=== PATIENT | female | born 1945 | race Caucasian/White ===

== ENCOUNTER 2020-04-17 19:24 | Inpatient (IN) | payer MEDICARE, OTHER ==
[2020-04-17] MEDS ORDERED: Ketorolac 30 MG/ML SDV IM ONE (20:31)
--- NOTE | 2020-04-17 20:34 | EDM.PDOC ---
ED HPI GENERAL MEDICAL PROBLEM - General Chief Complaint: General Stated Complaint: [facility]IA [facility] Time Seen by Provider: 04/17/20 20:24 Source of Information: Reports: Patient, Family, RN Notes Reviewed History Limitations: Reports: No Limitations - History of Present Illness INITIAL COMMENTS - FREE TEXT/NARRATIVE: 74-year-old female presents to emergency department a complaint of left hip pain, and weakness, she states she fell about 2 weeks ago initially she did walk on it but now the pain is gotten so severe she can no longer bear weight and has been moving around the home in a wheelchair. Left Leg Pain Score (Numeric/FACES): 10 - Related Data Allergies Allergy/AdvReac Type Severity Reaction Status Date / Time lisinopril AdvReac Cough Verified 04/17/20 19:38 Home Meds: Home Meds Cholecalciferol (Vitamin D3) [Vitamin D] 2,000 unit PO DAILY 10/16/14 [History] Levothyroxine [Synthroid] 50 mcg PO ACBREAKFAST 10/16/14 [History] Metoprolol Succinate [Toprol XL] 50 mg PO BID 10/16/14 [History] metFORMIN [Glucophage] 1,000 mg PO BIDMEALS 10/16/14 [History] Albuterol Sulfate [Albuterol Sulfate HFA] 2 puff PO QID PRN 11/20/14 [History] Aspirin [[place] Aspirin] 81 mg PO DAILY 11/20/14 [History] HCTZ/Triamterene [Maxzide 25-37.5 MG] 1 tab PO DAILY 11/20/14 [History] Terbinafine [LamISIL AT 1% Crm] 1 film TOP BID PRN 11/20/14 [History] Benzonatate [Tessalon Perle] 100 mg PO TID PRN 04/17/20 [History] Insulin Glarg,Human.Rec.Analog [Lantus Solostar] 19 unit SUBCUT DAILY 04/17/20 [History] Loratadine 10 mg PO DAILY 04/17/20 [History] Montelukast [Singulair] 10 mg PO DAILY 04/17/20 [History] [place]-3 Acid Ethyl Esters [Lovaza] 1 gm PO DAILY 04/17/20 [History] Terbinafine [LamISIL AT] 36 gm TP BID PRN 04/17/20 [History] Tiotropium [Spiriva] 18 mcg INH DAILY 04/17/20 [History] allopurinoL [Zyloprim] 300 mg PO DAILY 04/17/20 [History] atorvaSTATin Calcium [Lipitor] 20 mg PO DAILY 04/17/20 [History] Past Medical History HEENT History: Reports: Impaired Vision Cardiovascular History: Reports: High Cholesterol, Hypertension Respiratory History: Reports: Asthma Gastrointestinal History: Reports: Other (See Below) Other Gastrointestinal History: Had 2 weeks of diarrhea 2 months ago. 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: Musculoskeletal History: Reports: Arthritis Neurological History: Reports: Concussion Psychiatric History: Reports: Depression Endocrine/Metabolic History: Reports: Diabetes, Type II, Obesity/BMI 30+ Other Dermatologic History: something on back of head - Infectious Disease History Infectious Disease History: Reports: Chicken Pox, Measles - Past Surgical History HEENT Surgical History: Reports: Cataract Surgery Musculoskeletal Surgical History: Reports: Knee Replacement, Other (See Below) Other Musculoskeletal Surgeries/Procedures:: knee injections- cortisone right shoulder gets PT Social & Family History - Tobacco Use Tobacco Use Status *Q: Former Tobacco User Years of Tobacco use: 40 Packs/Tins Daily: 1 Used Tobacco, but Quit: Yes Month/Year Tobacco Last Used: Second Hand Smoke Exposure: No - Caffeine Use Caffeine Use: Reports: Coffee, Tea - Recreational Drug Use Recreational Drug Use: No ED ROS GENERAL - Review of Systems Review Of Systems: See Below Respiratory: Reports: No Symptoms Cardiovascular: Reports: No Symptoms Musculoskeletal: Reports: Joint Pain (Left hip pain) Neurological: Reports: No Symptoms ED EXAM, GENERAL - Physical Exam Exam: See Below Free Text/Narrative:: Examination left hip and on appreciate any erythema there is no edema however she is specifically point tenderness over the greater trochanter, will not tolerate much of an exam Exam Limited By: No Limitations General Appearance: Alert, WD/WN, No Apparent Distress Respiratory/Chest: No Respiratory Distress Course - Vital Signs Last Recorded V/S: Last Vital Signs Temp 97.3 F 04/18/20 00:18 Pulse 69 04/18/20 00:18 Resp 18 04/18/20 00:18 BP 168/80 H 04/18/20 00:18 Pulse Ox 90 L 04/18/20 00:18 - Orders/Labs/Meds Orders: Active Orders 24 hr Category Date Time Status Peripheral IV Care [RC] . DIRECTED Care 04/17/20 23:37 Active Hip Min 2V or 3V w Pelvis Lt [CR] Stat Exams 04/17/20 20:31 Taken Iopamidol [Isovue-300 (61%)] Med 04/18/20 00:31 Active 100 ml IV . DIRECTED PRN Sodium Chloride 0.9% [Normal Saline] 1,000 ml Med 04/17/20 23:45 Active IV ASDIRECTED Sodium Chloride 0.9% [Normal Saline] 80 ml Med 04/18/20 00:45 Active IV ASDIRECTED Sodium Chloride 0.9% [Saline Flush] Med 04/17/20 23:37 Active 10 ml FLUSH ASDIRECTED PRN Peripheral IV Insertion Adult [OM.PC] Stat Oth 04/17/20 23:37 Ordered Medication Orders Sodium Chloride (Normal Saline) 1,000 mls @ 500 mls/hr IV ASDIRECTED ELIZABETH Last Admin: 04/18/20 00:17 Dose: 500 mls/hr Documented by: SUJEY Sodium Chloride (Normal Saline) 80 mls @ 3 mls/sec IV ASDIRECTED ELIZABETH Last Admin: 04/18/20 00:48 Dose: 3 mls/sec Documented by: Admin: 04/18/20 00:45 Dose: 3 mls/sec Documented by: LAURA Iopamidol (Isovue-300 (61%)) 100 ml IV . DIRECTED PRN PRN Reason: RADIOLOGY EXAM Stop: 04/19/20 00:32 Last Admin: 04/18/20 00:45 Dose: 100 ml Documented by: LAURA Sodium Chloride (Saline Flush) 10 ml FLUSH ASDIRECTED PRN PRN Reason: Keep Vein Open Labs: Laboratory Tests 04/17/20 04/17/20 04/17/20 Range/Units 23:45 23:45 23:45 WBC 10.1 (4.5-11.0) K/uL RBC 3.40 (3.30-5.50) M/uL Hgb 11.0 L (12.0-15.0) g/dL Hct 36.2 (36.0-48.0) % MCV 107 H (80-98) fL MCH 32 H (27-31) pg MCHC 30 L (32-36) % Plt Count 234 (150-400) K/uL Neut % (Auto) 61 (36-66) % Lymph % (Auto) 24 (24-44) % [place] % (Auto) 11 H (2-6) % Eos % (Auto) 4 (2-4) % Baso % (Auto) 0 (0-1) % Sodium 138 L (140-148) mmol/L Potassium 4.2 (3.6-5.2) mmol/L Chloride 100 (100-108) mmol/L Carbon Dioxide 30 (21-32) mmol/L Anion Gap 12.2 (5.0-14.0) mmol/L BUN 17 (7-18) mg/dL Creatinine 1.2 H (0.6-1.0) mg/dL Est Cr Clr Drug Dosing 33.52 mL/min Estimated GFR (MDRD) 44 L (>60) Glucose 99 (74-106) mg/dL Lactic Acid 4.5 H (0.4-2.0) mmol/L Calcium 10.9 H (8.5-10.1) mg/dL Total Bilirubin 0.3 (0.2-1.0) mg/dL AST 35 (15-37) U/L ALT 43 (12-78) U/L Alkaline Phosphatase 83 (46-116) U/L C-Reactive Protein 0.13 (0.0-0.3) mg/dL Total Protein 8.3 H (6.4-8.2) g/dL Albumin 3.7 (3.4-5.0) g/dL Globulin 4.6 H (2.3-3.5) g/dL Albumin/Globulin Ratio 0.8 L (1.2-2.2) Meds: Medications Generic Name Dose Route Start Last Admin Trade Name Freq PRN Reason Stop Dose Admin Sodium Chloride 1,000 mls @ 500 mls/hr 04/17/20 23:45 04/18/20 00:17 Normal Saline IV 500 mls/hr ASDIRECTED ELIZABETH Administration Sodium Chloride 80 mls @ 3 mls/sec 04/18/20 00:45 04/18/20 00:48 Normal Saline IV 3 mls/sec ASDIRECTED ELIZABETH Administration Iopamidol 100 ml 04/18/20 00:31 04/18/20 00:45 Isovue-300 (61%) IV 04/19/20 00:32 100 ml . DIRECTED PRN Administration RADIOLOGY EXAM Sodium Chloride 10 ml 04/17/20 23:37 Saline Flush FLUSH ASDIRECTED PRN Keep Vein Open Discontinued Medications Generic Name Dose Route Start Last Admin Trade Name Gregoryq PRN Reason Stop Dose Admin Acetaminophen 650 mg 04/17/20 23:39 04/18/20 00:06 Tylenol PO 04/17/20 23:40 650 mg NOW ONE Administration Ketorolac Tromethamine 30 mg 04/17/20 20:31 04/17/20 21:18 Toradol IM 04/17/20 20:32 30 mg ONETIME ONE Administration Sodium Chloride 10 ml 04/18/20 00:31 Saline Flush FLUSH 04/18/20 00:32 ONETIME ONE Departure - Departure Time of Disposition: 01:37 Disposition: Admitted As Inpatient 68 Condition: Poor Clinical Impression: Lytic bone lesions on xray - Discharge Information Referrals: PCP,None [Primary Care Provider] - Forms: ED Department Discharge Sepsis Event Note (ED) - Evaluation Sepsis Screening Result: No Definite Risk - Focused Exam Vital Signs: Vital Signs Temp Pulse Resp BP Pulse Ox 04/18/20 00:18 97.3 F 69 18 168/80 H 90 L 04/17/20 20:12 97.0 F 74 14 126/55 L 90 L - My Orders Last 24 Hours: My Active Orders 04/17/20 20:31 Hip Min 2V or 3V w Pelvis Lt [CR] Stat 04/17/20 23:37 Peripheral IV Care [RC] . DIRECTED Sodium Chloride 0.9% [Saline Flush] 10 ml FLUSH ASDIRECTED PRN Peripheral IV Insertion Adult [OM.PC] Stat 04/17/20 23:45 Sodium Chloride 0.9% [Normal Saline] 1,000 ml IV ASDIRECTED 04/18/20 00:31 Iopamidol [Isovue-300 (61%)] 100 ml IV . DIRECTED PRN 04/18/20 00:45 Sodium Chloride 0.9% [Normal Saline] 80 ml IV ASDIRECTED - Assessment/Plan Last 24 Hours: My Active Orders 04/17/20 20:31 Hip Min 2V or 3V w Pelvis Lt [CR] Stat 04/17/20 23:37 Peripheral IV Care [RC] . DIRECTED Sodium Chloride 0.9% [Saline Flush] 10 ml FLUSH ASDIRECTED PRN Peripheral IV Insertion Adult [OM.PC] Stat 04/17/20 23:45 Sodium Chloride 0.9% [Normal Saline] 1,000 ml IV ASDIRECTED 04/18/20 00:31 Iopamidol [Isovue-300 (61%)] 100 ml IV . DIRECTED PRN 04/18/20 00:45 Sodium Chloride 0.9% [Normal Saline] 80 ml IV ASDIRECTED Plan: Assessment Acuity = acute Site and laterality = multiple lytic lesions femur pelvis spine ribs Etiology = multiple myeloma versus metastatic disease Manifestations = weakness, intractable bone pain Location of injury = Home Lab values = hemoglobin low 11.0 consistent with microchromic anemia creatinine elevated 1.2 consistent with chronic renal failure stage G3 B lactic acid elevated 4.5 consistent with lactic acidosis calcium elevated 10.9 CT scan describes multiple lytic lesions throughout the bones bases Plan Call discussed case Dr. Morris at 136 she currently agreed to come and evaluate the patient hospital for admission This note was dictated using [employer] voice recognition software please call with any questions on syntax or grammar.
--- NOTE | 2020-04-17 23:16 | CRLCT ---
INDICATION: Fall with pain and inability to bear weight. TECHNIQUE: Multi detector imaging mid pelvis to proximal calf. Axial, coronal and sagittal reformats. FINDINGS: No soft tissue hematoma or mass. Multiple intramedullary lesions with well-defined punched-out appearing lytic defects of cortex. Largest roughly 3 cm diameter poorly defined lucent lytic lesion in the undersurface of the femoral head and neck. Inferior cortex shows prominent permeative bone loss. Although fracture is strongly suspected, no definitive displaced fracture is seen although it is at significant risk nonetheless given that it involves greater than 50 percent of the medullary space. Next largest punched out appearing lytic intramedullary lesion extending through the cortex of the posterior femoral diaphysis roughly 11 cm above the knee. Multiple small other intramedullary lesions are present without bony changes. Small spindle shaped intramuscular lipoma in the lateral gluteus cherrie. No pathologic adenopathy. Mild osteoarthritis of the hip. Grade 3 osteoarthritis of the knee most pronounced medial compartment. Possible lytic lesion medial plateau. IMPRESSION: Multiple bone lesions are myeloma or metastasis. Probable pathologic fracture associated with largest lesion in the undersurface of the femoral head neck. If there is not a current nondisplaced fracture the lesion is at significant risk for development of pathologic fracture. Orthopedic referral recommended. Please note that all CT scans at this facility use dose modulation, iterative reconstruction, and/or weight-based dosing when appropriate to reduce radiation dose to as low as reasonably achievable. Dictated by Koby Arvizu MD @ Apr 20 2020 8:26AM Signed by Dr. Koby Arvizu @ Apr 20 2020 8:26AM
[2020-04-17] MEDS ORDERED: Sodium Chloride 0.9% 10 ML Syringe FLUSH PRN (23:37)
[2020-04-17] MEDS ORDERED: Acetaminophen 325 MG Tab PO ONE (23:39)
[2020-04-17] MEDS ORDERED: Sodium Chloride 0.9% 1,000 ML IV SCH (23:45)
[2020-04-18] MEDS ORDERED: Iopamidol 612 MG/ML 100 ML Bottle IV PRN (00:31)
[2020-04-18] MEDS ORDERED: Sodium Chloride 0.9% 10 ML Syringe FLUSH ONE (00:31)
[2020-04-18] MEDS: Sodium Chloride 0.9% 80 ML IV SCH ×2 (00:45→00:48)
--- NOTE | 2020-04-18 01:23 | CRLCT ---
INDICATION: Multiple lytic lesion pelvis and femur, leg pain from fall TECHNIQUE: CT chest, abdomen, and pelvis with i.v. contrast during the venous phase. Coronal and sagittal reformats were obtained. CONTRAST: 100 mL Isovue 300 COMPARISON: CT leg 04/17/2020 FINDINGS: CHEST: Cardiovascular: The heart has an unremarkable appearance and size. The pulmonary arteries are unremarkable in appearance. No sign of aneurysm or dissection in the thoracic aorta. Moderate atherosclerotic calcifications are noted in the coronary arteries. Mediastinum: No mass or adenopathy seen. Lung: Severe centrilobular and panlobular emphysema is present bilaterally. Pleura and pericardium: No sign of pleural effusion seen. No significant pericardial effusion is present. Chest wall and axilla: No mass or adenopathy seen. Bone: I there s a lytic lesion in the posterior aspect of T4 and large lytic lesion in the anterior aspect of T12 with mild pathologic compression deformity. There are lytic lesions present within the manubrium with expansile soft tissue masses in the left anterior 1st and 4th ribs measuring up to 6 x 2.7 cm. ABDOMEN/PELVIS: Liver: Unremarkable. Spleen: Unremarkable. Pancreas: Unremarkable. Gallbladder: Unremarkable. The common bile duct is enlarged measuring 11 mm with abrupt caliber change near the ampulla. Kidney: There is a 6 mm nonobstructing intrarenal stone present in the lower pole of the right kidney. Adrenal: Unremarkable. Bowel: Moderate wall thickening of the gastric antrum is present. Diffuse colonic diverticulosis is seen. The appendix is normal in appearance and size. Vascular: Moderate diffuse atherosclerotic calcifications of the abdominal aorta and its tributaries are present. Lymph: Unremarkable. Peritoneum: Unremarkable. No pneumoperitoneum is seen. No significant ascites is noted. Pelvis: Moderate bladder distention is noted. Soft tissue: Unremarkable. Bone: Several sacral lytic lesions are noted. Lytic lesions within the proximal left femur and inferior pubic ramus are present. IMPRESSIONS: 1. Lytic lesions are present within the spine, pelvis with expansile masses along the left anterior 1st and 4th ribs. 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 2. The common bile duct is enlarged measuring 11 mm with abrupt caliber change near the ampulla. Assessment with MRCP is recommended. 3. Moderate wall thickening of the gastric antrum is present. This may be due to gastritis or peptic ulcer disease and confirmation with barium GI series or endoscopy is recommended. Dictated by Abel Youssef MD @ 04/18/2020 1:22:28 AM Please note that all CT scans at this facility use dose modulation, iterative reconstruction, and/or weight-based dosing when appropriate to reduce radiation dose to as low as reasonably achievable. Dictated by: Abel Youssef MD @ 04/18/2020 01:22:34 (Electronically Signed)
[2020-04-18] MEDS ORDERED: Ondansetron 4 MG Tab.DIS PO PRN (01:38)
[2020-04-18] MEDS ORDERED: 50% Dextrose in Water 50 ML Syringe IVPUSH PRN (01:42)
[2020-04-18] MEDS ORDERED: Glucagon,Human Recombinant 1 MG Vial IM PRN (01:42)
[2020-04-18] MEDS ORDERED: Benzonatate 100 MG Cap PO PRN (01:42)
[2020-04-18] MEDS ORDERED: TERBINAFINE TOP PRN ×2 (01:42)
[2020-04-18] MEDS ORDERED: Albuterol 8 GM Inhaler INH PRN (01:42)
[2020-04-18] MEDS ORDERED: Sodium Chloride 0.9% 1,000 ML IV SCH (01:45)
[2020-04-18] MEDS ORDERED: Levothyroxine 50 MCG Tab PO SCH (07:30)
[2020-04-18] MEDS ORDERED: metFORMIN 500 MG Tab PO SCH (08:00)
[2020-04-18] MEDS: oxyCODONE 5 MG Tab PO PRN ×3 (08:25→20:04)
--- NOTE | 2020-04-18 08:46 | PCM.HP.2 ---
H&P History of Present Illness - General Date of Service: 04/18/20 Admit Problem/Dx: Admission Diagnosis/Problem Admission Diagnosis/Problem Lytic lesion of bone on x-ray Source of Information: Patient History Limitations: Reports: No Limitations - History of Present Illness Initial Comments - Free Text/Narative: Patient is a 74yo female with PMH of HTN, DMII, COPD, and hypothyroidism who presented O/N for L hip pain. The patient says that she fell a few weeks ago and has been having some pain, but in the last two weeks the pain has increased to the point of her not being able to bear weight on her L leg. She worried she had a fracture and came to the ED. She says the pain in her leg has been ongoing since at least the summer. She says she had XRs done in the summer and they were negative and she started PT to help, but it hasn't improved her pain. She says she has been having routine lab work and it has never been concerning and she does see her PCP regularly. PCP is Kasey Alamo at [facility]. Patient denies any fever, night sweats, chills, malaise. She does note a bout of loose stools that happened for more than two weeks this summer. Duration of Symptoms: Reports: Week(s): Location: Reports: Lower Extremity, Left Quality: Reports: Ache, Sharp Improves with: Reports: None Worsens with: Reports: Movement Associated Symptoms: Reports: No Other Symptoms Left Leg Pain Score (Numeric/FACES): 7 - Related Data Allergies/Adverse Reactions: Allergies Allergy/AdvReac Type Severity Reaction Status Date / Time lisinopril AdvReac Cough Verified 04/17/20 19:38 Home Medications: Home Meds Cholecalciferol (Vitamin D3) [Vitamin D] 2,000 unit PO DAILY 10/16/14 [History] Levothyroxine [Synthroid] 50 mcg PO ACBREAKFAST 10/16/14 [History] metFORMIN [Glucophage] 1,000 mg PO BIDMEALS 10/16/14 [History] Albuterol Sulfate [Albuterol Sulfate HFA] 2 puff PO QID PRN 11/20/14 [History] Aspirin [[place] Aspirin] 81 mg PO DAILY 11/20/14 [History] HCTZ/Triamterene [Maxzide 25-37.5 MG] 1 tab PO DAILY 11/20/14 [History] Terbinafine [LamISIL AT 1% Crm] 1 film TOP BID PRN 11/20/14 [History] Benzonatate [Tessalon Perle] 100 mg PO TID PRN 04/17/20 [History] Insulin Glarg,Human.Rec.Analog [Lantus Solostar] 19 unit SUBCUT BEDTIME 04/17/20 [History] Loratadine 10 mg PO DAILY 04/17/20 [History] Montelukast [Singulair] 10 mg PO BEDTIME 04/17/20 [History] [place]-3 Acid Ethyl Esters [Lovaza] 1 gm PO DAILY 04/17/20 [History] Terbinafine [LamISIL AT] 36 gm TP BID PRN 04/17/20 [History] Tiotropium [Spiriva] 18 mcg INH DAILY 04/17/20 [History] allopurinoL [Zyloprim] 300 mg PO DAILY 04/17/20 [History] atorvaSTATin Calcium [Lipitor] 20 mg PO QPM 04/17/20 [History] Metoprolol Tartrate 50 mg PO BID 04/18/20 [History] Past Medical History HEENT History: Reports: Impaired Vision Cardiovascular History: Reports: High Cholesterol, Hypertension Respiratory History: Reports: Asthma Gastrointestinal History: Reports: Other (See Below) Other Gastrointestinal History: Had 2 weeks of diarrhea 2 months ago. 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: Musculoskeletal History: Reports: Arthritis Neurological History: Reports: Concussion Psychiatric History: Reports: Depression Endocrine/Metabolic History: Reports: Diabetes, Type II, Obesity/BMI 30+ Other Dermatologic History: something on back of head - Infectious Disease History Infectious Disease History: Reports: Chicken Pox, Measles - Past Surgical History HEENT Surgical History: Reports: Cataract Surgery Musculoskeletal Surgical History: Reports: Knee Replacement, Other (See Below) Other Musculoskeletal Surgeries/Procedures:: knee injections- cortisone right shoulder gets PT Social & Family History - Tobacco Use Tobacco Use Status *Q: Former Tobacco User Years of Tobacco use: 40 Packs/Tins Daily: 1 Used Tobacco, but Quit: Yes Month/Year Tobacco Last Used: 2002 Second Hand Smoke Exposure: No - Caffeine Use Caffeine Use: Reports: None - Recreational Drug Use Recreational Drug Use: No H&P Review of Systems - Review of Systems: Review Of Systems: See Below General: Denies: Fever, Chills, Malaise, Night Sweats HEENT: Reports: No Symptoms Pulmonary: Reports: No Symptoms Cardiovascular: Reports: No Symptoms Gastrointestinal: Reports: No Symptoms Genitourinary: Reports: No Symptoms Musculoskeletal: Reports: Leg Pain, Joint Pain Skin: Reports: No Symptoms Psychiatric: Reports: No Symptoms Neurological: Reports: No Symptoms Hematologic/Lymphatic: Reports: No Symptoms Immunologic: Reports: No Symptoms Exam - Exam Exam: See Below - Vital Signs Vital Signs: Last Vital Signs Temp 35.9 C L 04/18/20 07:46 Pulse 72 04/18/20 07:46 Resp 14 04/18/20 07:46 BP 118/66 04/18/20 07:46 Pulse Ox 91 L 04/18/20 07:46 Weight: 79.515 kg - Exam General: Alert, Oriented, 4 HEENT: PERRLA, Hearing Intact, Mucosa Moist & [place], Nares Patent, Normal Nasal Septum, Posterior Pharynx Clear, Conjunctiva Clear, EOMI, EACs Clear, TMs Clear Neck: Supple, Trachea Midline, 2 Lungs: Clear to Auscultation, Normal Respiratory Effort Cardiovascular: Regular Rate, Regular Rhythm GI/Abdominal Exam: Normal Bowel Sounds, Soft, Non-Tender, No Organomegaly, No Distention, No Abnormal Bruit, No Mass, Pelvis Stable (Female) Exam: Deferred Rectal (Female) Exam: Deferred Back Exam: Normal Inspection Extremities: Normal Inspection, Leg Pain (TTP of left leg) Skin: Warm, Dry, Intact Neurological: Cranial Nerves Intact, Reflexes Equal Bilateral Neuro Extensive - Mental Status: Alert, Oriented x3, Normal Mood/Affect, Normal Cognition Neuro Extensive - Motor, Sensory, Reflexes: CN II-XII Intact, Normal Gait, Normal Reflexes Psychiatric: Alert, Normal Affect, Normal Mood - Patient Data Lab Results Last 24 hrs: Laboratory Results - last 24 hr 04/17/20 04/17/20 04/17/20 Range/Units 23:45 23:45 23:45 WBC 10.1 (4.5-11.0) K/uL RBC 3.40 (3.30-5.50) M/uL Hgb 11.0 L (12.0-15.0) g/dL Hct 36.2 (36.0-48.0) % MCV 107 H (80-98) fL MCH 32 H (27-31) pg MCHC 30 L (32-36) % Plt Count 234 (150-400) K/uL Neut % (Auto) 61 (36-66) % Lymph % (Auto) 24 (24-44) % Mineral % (Auto) 11 H (2-6) % Eos % (Auto) 4 (2-4) % Baso % (Auto) 0 (0-1) % Sodium 138 L (140-148) mmol/L Potassium 4.2 (3.6-5.2) mmol/L Chloride 100 (100-108) mmol/L Carbon Dioxide 30 (21-32) mmol/L Anion Gap 12.2 (5.0-14.0) mmol/L BUN 17 (7-18) mg/dL Creatinine 1.2 H (0.6-1.0) mg/dL Est Cr Clr Drug Dosing 33.52 mL/min Estimated GFR (MDRD) 44 L (>60) Glucose 99 (74-106) mg/dL Lactic Acid 4.5 H (0.4-2.0) mmol/L Calcium 10.9 H (8.5-10.1) mg/dL Total Bilirubin 0.3 (0.2-1.0) mg/dL AST 35 (15-37) U/L ALT 43 (12-78) U/L Alkaline Phosphatase 83 (46-116) U/L C-Reactive Protein 0.13 (0.0-0.3) mg/dL Total Protein 8.3 H (6.4-8.2) g/dL Albumin 3.7 (3.4-5.0) g/dL Globulin 4.6 H (2.3-3.5) g/dL Albumin/Globulin Ratio 0.8 L (1.2-2.2) Result Diagrams: 04/17/20 23:45 04/17/20 23:45 Sepsis Event Note - Evaluation Sepsis Screening Result: No Definite Risk - Focused Exam Vital Signs: Vital Signs Temp Pulse Resp BP Pulse Ox 04/18/20 07:46 35.9 C L 72 14 118/66 91 L 04/18/20 02:26 35.7 C L 77 20 180/78 H 91 L 04/18/20 00:18 36.3 C 69 18 168/80 H 90 L - Problem List (1) Lytic bone lesions on xray SNOMED Code(s): 698470249 ICD Code: M89.9 - DISORDER OF BONE, UNSPECIFIED Status: Acute Priority: High Current Visit: Yes Onset Date: Unknown Problem Details: Patient has pain due to lytic lesions that are widespread of her bones. Will attempt to get pain under control with dexamethasone, NSAIDs, and opiate pain medication. 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 Diabetes mellitus complication status: with kidney complications Diabetes mellitus complication detail: with chronic kidney disease Chronic kidney disease stage: stage 3 (moderate) (3) HTN (hypertension) SNOMED Code(s): 71683718 ICD Code: I10 - ESSENTIAL (PRIMARY) HYPERTENSION Status: Acute Current Visit: Yes Problem Details: Will have patient continue home medications Qualifiers: Hypertension type: essential hypertension Qualified Code(s): I10 - Essential (primary) hypertension (4) Hypothyroidism SNOMED Code(s): 32032080 ICD Code: E03.9 - HYPOTHYROIDISM, UNSPECIFIED Status: Acute Current Visit: Yes Problem Details: Patient will continue synthyroid (5) COPD (chronic obstructive pulmonary disease) SNOMED Code(s): 92232078 ICD Code: J44.9 - CHRONIC OBSTRUCTIVE PULMONARY DISEASE, UNSPECIFIED Status: Acute Current Visit: Yes Problem Details: will have patient continue home medications Qualifiers: COPD type: chronic bronchitis Problem List Initiated/Reviewed/Updated: Yes Orders Last 24hrs: Active Orders 24 hr Category Date Time Status Patient Status [ADT] Routine ADT 04/18/20 01:38 Active Intake and Output [RC] QSHIFT Care 04/18/20 01:40 Active Oxygen Therapy [RC] PRN Care 04/18/20 01:38 Active POC Glucose [Blood Glucose Check, Bedside] [RC] Care 04/18/20 01:44 Active QIDACANDBED Peripheral IV Care [RC] . DIRECTED Care 04/17/20 23:37 Active RT Post Treatment Assessment [RC] Click to Edit Care 04/18/20 01:43 Active Up With Assistance [RC] ASDIRECTED Care 04/18/20 01:38 Active VTE/DVT Education [RC] Per Unit Routine Care 04/18/20 01:38 Active Vital Signs [RC] Q4H Care 04/18/20 01:38 Active Consistent Carbohydrate Diet [DIET] Diet 04/18/20 Breakfast Active Hip Min 2V or 3V w Pelvis Lt [CR] Stat Exams 04/17/20 20:31 Taken Acetaminophen [TylenoL] Med 04/18/20 01:38 Active 650 mg PO Q4H PRN Albuterol [Ventolin HFA] Med 04/18/20 01:42 Active 0 gm INH QID PRN Aspirin Med 04/18/20 09:00 Active 81 mg PO DAILY Benzonatate [Tessalon Perles] Med 04/18/20 01:42 Active 100 mg PO TID PRN Cholecalciferol (Vitamin D3) [Vitamin D3] Med 04/18/20 09:00 Active 50 mcg PO DAILY Dextrose 50% in Water Med 04/18/20 01:42 Active 50 ml IVPUSH ASDIRECTED PRN Docusate Sodium [Colace] Med 04/18/20 01:38 Active 100 mg PO BID PRN Enoxaparin [Lovenox] Med 04/18/20 09:00 Active 40 mg SUBCUT DAILY Fish Oil/[place]-3 Fatty Acids [Fish Oil] Med 04/18/20 09:00 Active 1 gm PO DAILY Glucagon,Human Recombinant [GlucaGen] Med 04/18/20 01:42 Active 1 mg IM ASDIRECTED PRN HCTZ/Triamterene [Maxzide 25-37.5 MG] Med 04/18/20 09:00 Active 1 each PO DAILY Insulin Glarg,Human.Rec.Analog [LantUS Solostar] Med 04/18/20 21:00 Active 19 units SUBCUT BEDTIME Iopamidol [Isovue-300 (61%)] Med 04/18/20 00:31 Active 100 ml IV . DIRECTED PRN Levothyroxine [Synthroid] Med 04/18/20 07:30 Active 50 mcg PO ACBREAKFAST Loratadine [Claritin] Med 04/18/20 09:00 Active 10 mg PO DAILY Metoprolol Tartrate [Lopressor] Med 04/18/20 09:00 Active 50 mg PO BID Montelukast [Singulair] Med 04/18/20 21:00 Active 10 mg PO BEDTIME Ondansetron [Zofran ODT] Med 04/18/20 01:38 Active 4 mg PO Q6H PRN Sodium Chloride 0.9% [Normal Saline] 1,000 ml Med 04/18/20 01:45 Active IV ASDIRECTED Sodium Chloride 0.9% [Saline Flush] Med 04/17/20 23:37 Active 10 ml FLUSH ASDIRECTED PRN Terbinafine [LamISIL AT 1% Crm] Med 04/18/20 01:42 Pending 1 film TOP BID PRN Terbinafine [LamISIL AT 1% Crm] Med 04/18/20 01:42 Pending 36 gm TP BID PRN Tiotropium [place] [Spiriva Respimat] Med 04/18/20 07:30 Active 0 gm INH DAILYRT allopurinoL [Zyloprim] Med 04/18/20 09:00 Active 300 mg PO DAILY atorvaSTATin [Lipitor] Med 04/18/20 17:00 Active 20 mg PO QPM metFORMIN [Glucophage] Med 04/18/20 08:00 Active 1,000 mg PO BIDMEALS oxyCODONE Med 04/18/20 01:38 Active 5 mg PO Q4H PRN Peripheral IV Insertion Adult [OM.PC] Stat Oth 04/17/20 23:37 Ordered Resuscitation Status Routine Resus Stat 04/18/20 01:38 Ordered Medication Orders Acetaminophen (Tylenol) 650 mg PO Q4H PRN PRN Reason: Pain (Mild 1-3)/fever Albuterol (Ventolin Hfa) 0 gm INH QID PRN PRN Reason: Shortness of Breath Allopurinol (Zyloprim) 300 mg PO DAILY [facility] Aspirin (Aspirin) 81 mg PO DAILY [facility] Atorvastatin Calcium (Lipitor) 20 mg PO QPM [facility] Benzonatate (Tessalon Perles) 100 mg PO TID PRN PRN Reason: Cough Cholecalciferol (Vitamin D3) 50 mcg PO DAILY [facility] Dextrose/Water (Dextrose 50% In Water) 50 ml IVPUSH ASDIRECTED PRN PRN Reason: Hypoglycemia Docusate Sodium (Colace) 100 mg PO BID PRN PRN Reason: Constipation Enoxaparin Sodium (Lovenox) 40 mg SUBCUT DAILY [facility] Fish Oil (Fish Oil) 1 gm PO DAILY [facility] Glucagon (Glucagen) 1 mg IM ASDIRECTED PRN PRN Reason: Hypoglycemia Sodium Chloride (Normal Saline) 1,000 mls @ 125 mls/hr IV ASDIRECTED [facility] Last Admin: 04/18/20 02:41 Dose: 125 mls/hr Documented by: SEBASTIAN Insulin Glargine (Lantus Solostar) 19 units SUBCUT BEDTIME [facility] Iopamidol (Isovue-300 (61%)) 100 ml IV . DIRECTED PRN PRN Reason: RADIOLOGY EXAM Stop: 04/19/20 00:32 Last Admin: 04/18/20 00:45 Dose: 100 ml Documented by: LAURA Levothyroxine Sodium (Synthroid) 50 mcg PO ACBREAKFAST [facility] Loratadine (Claritin) 10 mg PO DAILY [facility] Metformin HCl (Glucophage) 1,000 mg PO BIDMEALS [facility] Metoprolol Tartrate (Lopressor) 50 mg PO BID [facility] Montelukast Sodium (Singulair) 10 mg PO BEDTIME [facility] Non-Formulary Medication (Terbinafine [Lamisil At 1% Crm]) 1 film TOP BID PRN PRN Reason: Wound Care Non-Formulary Medication (Terbinafine [Lamisil At 1% Crm]) 36 gm TP BID PRN PRN Reason: Rash Ondansetron HCl (Zofran Odt) 4 mg PO Q6H PRN PRN Reason: Nausea able to take PO Oxycodone HCl (Oxycodone) 5 mg PO Q4H PRN PRN Reason: Pain (moderate 4-6) Last Admin: 04/18/20 08:25 Dose: 5 mg Documented by: XIOMARA Sodium Chloride (Saline Flush) 10 ml FLUSH ASDIRECTED PRN PRN Reason: Keep Vein Open Tiotropium [place] (Spiriva Respimat) 0 gm INH DAILYRT [facility] Triamterene/HCTZ (Maxzide 25-37.5 Mg) 1 each PO DAILY [facility]
[2020-04-18] MEDS ORDERED: Montelukast 10 MG Tab PO SCH (09:00)
[2020-04-18] MEDS ORDERED: OMEGA ACID ETHYL ESTERS PO SCH (09:00)
[2020-04-18] MEDS ORDERED: Metoprolol Succinate 50 MG Tab.ER PO SCH (09:00)
[2020-04-18] MEDS ORDERED: Insulin Glargine,Human Rec. Analog 100 Units/ML 3 ML Pen SUBCUT SCH ×2 (09:00→21:00)
[2020-04-18] MEDS ORDERED: Tiotropium Bromide 4 GM Inhalation Spray INH SCH (09:00)
[2020-04-18] MEDS ORDERED: atorvaSTATin 20 MG Tab PO SCH (09:00)
[2020-04-18] MEDS ORDERED: Allopurinol 100 MG Tab PO SCH (09:00)
[2020-04-18] MEDS: Tiotropium Bromide 4 GM Inhalation Spray INH SCH (09:55)
[2020-04-18] MEDS: Aspirin 81 MG Tab.Chew PO SCH (09:56)
[2020-04-18] MEDS: FATTY ACIDS PO SCH (09:57)
[2020-04-18] MEDS: OMEGA PO SCH (09:57)
[2020-04-18] MEDS: LORATADINE 10 MG PO SCH (09:57)
[2020-04-18] MEDS: FISH OIL PO SCH (09:57)
[2020-04-18] MEDS: Metoprolol Tartrate 50 MG Tab (PTOM) PO SCH ×2 (09:58→20:05)
[2020-04-18] MEDS: Hydrochlorothiazide/Triamterene 25-37.5 Tab (PTOM) PO SCH (10:00)
[2020-04-18] MEDS: ALLOPURINOL 300MG TAB (PTOM) PO SCH (10:02)
[2020-04-18] MEDS: Dexamethasone 4 MG/ML SDV IVPUSH SCH ×3 (10:02→22:02)
[2020-04-18] MEDS: METFORMIN 1,000MG TAB (PTOM) PO SCH ×2 (10:03→17:11)
[2020-04-18] MEDS: LEVOTHYROXINE 75MCG TAB (PTOM) PO SCH ×2 (10:04→11:52)
[2020-04-18] MEDS: Cholecalciferol (Vitamin D3) 25 MCG Tab (PTOM) PO SCH (10:06)
[2020-04-18] MEDS: Enoxaparin 40 MG/0.4 ML Syringe SUBCUT SCH (10:07)
[2020-04-18] MEDS: Acetaminophen 325 MG Tab PO PRN ×2 (14:37→20:04)
[2020-04-18] MEDS ORDERED: atorvaSTATin 20 MG Tab (PTOM) PO SCH (17:00)
[2020-04-18] MEDS ORDERED: Dimethicone 20%/Zinc Oxide 25% 56 GM Spray Bottle TOP PRN (19:29)
[2020-04-18] MEDS ORDERED: INSULIN GLARGINE HUMAN REC ANALOG 100 UNIT/ML SUBCUT SCH (21:00)
[2020-04-18] MEDS ORDERED: Montelukast 10 MG Tab (PTOM) PO SCH (21:00)
[2020-04-19] MEDS: Dexamethasone 4 MG/ML SDV IVPUSH SCH (04:50)
[2020-04-19] MEDS: Acetaminophen 325 MG Tab PO PRN ×3 (05:03→21:55)
[2020-04-19] MEDS: oxyCODONE 5 MG Tab PO PRN ×2 (05:03→14:34)
[2020-04-19] MEDS: Tiotropium Bromide 4 GM Inhalation Spray INH SCH (07:05)
[2020-04-19] MEDS: LEVOTHYROXINE 75MCG TAB (PTOM) PO SCH (07:30)
[2020-04-19] MEDS: METFORMIN 1,000MG TAB (PTOM) PO SCH (09:31)
[2020-04-19] MEDS: Docusate Sodium 100 MG Cap PO PRN (09:55)
[2020-04-19] MEDS: OMEGA PO SCH (09:55)
[2020-04-19] MEDS: Enoxaparin 40 MG/0.4 ML Syringe SUBCUT SCH (09:55)
[2020-04-19] MEDS: FATTY ACIDS PO SCH (09:55)
[2020-04-19] MEDS: FISH OIL PO SCH (09:55)
[2020-04-19] MEDS: Metoprolol Tartrate 50 MG Tab (PTOM) PO SCH (09:56)
[2020-04-19] MEDS: ALLOPURINOL 300MG TAB (PTOM) PO SCH (09:57)
[2020-04-19] MEDS: LORATADINE 10 MG PO SCH (09:57)
[2020-04-19] MEDS: Hydrochlorothiazide/Triamterene 25-37.5 Tab (PTOM) PO SCH (09:58)
[2020-04-19] MEDS: Cholecalciferol (Vitamin D3) 25 MCG Tab (PTOM) PO SCH (09:59)
[2020-04-19] MEDS: Aspirin 81 MG Tab.Chew PO SCH (10:00)
[2020-04-19] MEDS: fentaNYL 12 MCG/HR Transdermal Patch TRDERM SCH (10:07)
--- NOTE | 2020-04-19 13:46 | PCM.PN ---
- General Info Date of Service: 04/19/20 Subjective Update: There were no acute events overnight. Pain is a little better today than yesterday but still moderate in nature. Pain is worse when she tries to sit up. She also has some twinges of pain from her lower back radiating through her thigh especially on the right. She was able to bear weight with the assist of 2 people. She has not had any fevers. She has not had significant confusion so far. She remains extremely weak and pain control remains suboptimal though it is a little better. - Review of Systems General: Reports: Weakness - Patient Data Vitals - Most Recent: Last Vital Signs Temp 35.3 C L 04/19/20 12:00 Pulse 80 04/19/20 12:00 Resp 16 04/19/20 12:00 BP 162/74 H 04/19/20 12:00 Pulse Ox 92 L 04/19/20 12:00 Weight - Most Recent: 79.515 kg I&O - Last 24 Hours: Intake & Output 04/18/20 04/19/20 04/19/20 22:59 06:59 14:59 Output Total 600 Balance -600 Med Orders - Current: Current Medications Acetaminophen (Tylenol) 650 mg PO Q4H PRN PRN Reason: Pain (Mild 1-3)/fever Last Admin: 04/19/20 05:03 Dose: 650 mg Documented by: Albuterol (Ventolin Hfa) 0 gm INH QID PRN PRN Reason: Shortness of Breath Allopurinol (Zyloprim) 300 mg PO DAILY [facility] Aspirin (Aspirin) 81 mg PO DAILY [facility] Last Admin: 04/19/20 10:00 Dose: 81 mg Documented by: Atorvastatin Calcium (Lipitor) 20 mg PO QPM [facility] Benzonatate (Tessalon Perles) 100 mg PO TID PRN PRN Reason: Cough Cholecalciferol (Vitamin D3) 50 mcg PO DAILY [facility] Dexamethasone (Dexamethasone) 4 mg PO DAILY [facility] Dextrose/Water (Dextrose 50% In Water) 50 ml IVPUSH ASDIRECTED PRN PRN Reason: Hypoglycemia Dimethicone/Zinc Oxide (Rash Relief-Zinc Oxide [place]) 0 gm TOP ASDIRECTED PRN PRN Reason: Rash Last Admin: 04/18/20 20:42 Dose: 1 applic Documented by: Docusate Sodium (Colace) 100 mg PO BID PRN PRN Reason: Constipation Last Admin: 04/19/20 09:55 Dose: 100 mg Documented by: Enoxaparin Sodium (Lovenox) 40 mg SUBCUT DAILY [facility] Last Admin: 04/19/20 09:55 Dose: 40 mg Documented by: Fentanyl (Duragesic) 12 mcg TRDERM Q72H [facility] Last Admin: 04/19/20 10:07 Dose: 12 mcg Documented by: Fish Oil (Fish Oil) 1 gm PO DAILY [facility] Glucagon (Glucagen) 1 mg IM ASDIRECTED PRN PRN Reason: Hypoglycemia Insulin Glargine (Lantus Solostar) 19 units SUBCUT BEDTIME [facility] Levothyroxine Sodium 25 mcg/ (Levothyroxine Sodium 50 mcg) 75 mcg PO ACBREAKFAST [facility] Loratadine (Claritin) 10 mg PO DAILY [facility] Metformin HCl (Glucophage) 1,000 mg PO BIDMEALS [facility] Metoprolol Tartrate (Lopressor) 50 mg PO BID [facility] Montelukast Sodium (Singulair) 10 mg PO BEDTIME [facility] Terbinafine [Lamisil (At 1% Crm (Ptom)) 0 gm TOP BID PRN PRN Reason: Rash Verify Fentanyl (Patch) 0 each TOP BID [facility] Ondansetron HCl (Zofran Odt) 4 mg PO Q6H PRN PRN Reason: Nausea able to take PO Oxycodone HCl (Oxycodone) 5 mg PO Q4H PRN PRN Reason: Pain (moderate 4-6) Last Admin: 04/19/20 05:03 Dose: 5 mg Documented by: Sodium Chloride (Saline Flush) 10 ml FLUSH ASDIRECTED PRN PRN Reason: Keep Vein Open Tiotropium [place] (Spiriva Respimat) 0 gm INH DAILYRT [facility] Triamterene/HCTZ (Maxzide 25-37.5 Mg) 1 each PO DAILY [facility] Discontinued Medications Acetaminophen (Tylenol) 650 mg PO NOW ONE Stop: 04/17/20 23:40 Last Admin: 04/18/20 00:06 Dose: 650 mg Documented by: Atorvastatin Calcium (Lipitor) 20 mg PO QPM [facility] Last Admin: 04/18/20 17:09 Dose: 20 mg Documented by: Cholecalciferol (Vitamin D3) 50 mcg PO DAILY [facility] Last Admin: 04/19/20 09:59 Dose: 50 mcg Documented by: Dexamethasone (Dexamethasone) 4 mg IVPUSH Q6H [facility] Last Admin: 04/19/20 04:50 Dose: 4 mg Documented by: Fish Oil (Fish Oil) 1 gm PO DAILY [facility] Last Admin: 04/19/20 09:55 Dose: 1 gm Documented by: Sodium Chloride (Normal Saline) 1,000 mls @ 500 mls/hr IV ASDIRECTED [facility] Last Admin: 04/18/20 00:17 Dose: 500 mls/hr Documented by: Sodium Chloride (Normal Saline) 80 mls @ 3 mls/sec IV ASDIRECTED [facility] Last Admin: 04/18/20 00:48 Dose: 3 mls/sec Documented by: Sodium Chloride (Normal Saline) 1,000 mls @ 125 mls/hr IV ASDIRECTED [facility] Last Admin: 04/18/20 02:41 Dose: 125 mls/hr Documented by: Insulin Glargine (Lantus Solostar) 19 units SUBCUT BEDTIME [facility] Last Admin: 04/18/20 20:36 Dose: 19 units Documented by: Iopamidol (Isovue-300 (61%)) 100 ml IV . DIRECTED PRN PRN Reason: RADIOLOGY EXAM Stop: 04/19/20 00:32 Last Admin: 04/18/20 00:45 Dose: 100 ml Documented by: Ketorolac Tromethamine (Toradol) 30 mg IM ONETIME ONE Stop: 04/17/20 20:32 Last Admin: 04/17/20 21:18 Dose: 30 mg Documented by: Levothyroxine Sodium (Synthroid) 50 mcg PO ACBREAKFAST [facility] Last Admin: 04/18/20 20:59 Dose: Not Given Documented by: Loratadine (Claritin) 10 mg PO DAILY [facility] Last Admin: 04/19/20 09:57 Dose: 10 mg Documented by: Metoprolol Tartrate (Lopressor) 50 mg PO BID [facility] Last Admin: 04/19/20 09:56 Dose: 50 mg Documented by: Montelukast Sodium (Singulair) 10 mg PO BEDTIME [facility] Last Admin: 04/18/20 20:05 Dose: 10 mg Documented by: Non-Formulary Medication (Terbinafine [Lamisil At 1% Crm]) 1 film TOP BID PRN PRN Reason: Wound Care Levothyroxine 75mcg (Tab (Ptom)) 0 each PO ACBREAKFAST [facility] Last Admin: 04/19/20 07:30 Dose: 1 each Documented by: Allopurinol 300mg (Tab (Ptom)) 0 each PO DAILY [facility] Last Admin: 04/19/20 09:57 Dose: 1 each Documented by: Metformin 1,000mg (Tab (Ptom)) 1 each PO BIDMEALS [facility] Last Admin: 04/19/20 09:31 Dose: 1 each Documented by: Sodium Chloride (Saline Flush) 10 ml FLUSH ONETIME ONE Stop: 04/18/20 00:32 Last Admin: 04/18/20 02:35 Dose: Not Given Documented by: Tiotropium [place] (Spiriva Respimat) 0 gm INH DAILYRT [facility] Last Admin: 04/19/20 07:05 Dose: Not Given Documented by: Triamterene/HCTZ (Maxzide 25-37.5 Mg) 1 each PO DAILY [facility] Last Admin: 04/19/20 09:58 Dose: 1 each Documented by: - Exam Quality Assessment: No: Supplemental Oxygen General: Alert, Oriented, Cooperative, No Acute Distress Lungs: Normal Respiratory Effort. No: Wheezing Cardiovascular: Regular Rate, Regular Rhythm GI/Abdominal Exam: Soft, No Distention Extremities: No Pedal Edema. No: Increased Warmth Psy/Mental Status: Alert, Normal Affect Sepsis Event Note - Evaluation Sepsis Screening Result: No Definite Risk - Focused Exam Vital Signs: Vital Signs Temp Pulse Pulse Resp BP BP Pulse Ox 04/19/20 12:00 35.3 C L 80 16 162/74 H 92 L 04/19/20 09:56 86 174/74 H 04/19/20 08:00 35.6 C L 85 16 174/74 H 90 L 04/19/20 04:00 35.5 C L 88 18 166/78 H 91 L - Problem List Review Problem List Initiated/Reviewed/Updated: Yes - My Orders Last 24 Hours: My Active Orders 04/18/20 19:29 Dimethicone/Zinc Oxide [Rash Relief-Zinc Oxide [place]] 0 gm TOP ASDIRECTED PRN 04/19/20 09:44 Patient Status [ADT] Routine 04/19/20 10:00 fentaNYL [Duragesic] 12 mcg TRDERM Q72H 04/19/20 21:00 Non-Formulary Medication [NF Drug] 0 each TOP BID 04/20/20 05:00 BASIC METABOLIC PANEL,BMP [CHEM] Timed CBC W/O DIFF,HEMOGRAM [HEME] Timed (1) 04/20/20 07:00 PT Evaluation and Treatment [CONS] Routine 04/20/20 09:00 dexAMETHasone 4 mg PO DAILY - Plan Plan:: ASSESSMENT AND PLAN - Multiple myeloma, suspected-patient has anemia, renal insufficiency, elevated proteins albumin gradient as well as lytic bone lesions. She does have follow- up with oncology arranged in just over a week. 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 No definitive evidence for pathologic fracture at this time. She is able to bear weight now but is extremely weak. -Start low-dose fentanyl patch -Oxycodone for bone pain -Continue dexamethasone daily -Physical therapy -Outpatient oncology follow-up Insulin-dependent diabetes mellitus-sugars fairly well controlled. -Continue home medications Hypertension-blood pressure control acceptable. -Continue home medications Maintenance issues - - DVT prophylaxis -enoxaparin - GI prophylaxis -not indicated - Nutrition -consistent carbohydrates - Stark catheter -not indicated Admission justification -patient was initially admitted to observation status but will be transitioned to inpatient status with profound weakness and ongoing pain control issues as well as further work-up of her presumed diagnosis of multiple myeloma. Disposition -I would anticipate discharge home with home care versus possibly subacute rehab though patient is quite against going to the [facility] for rehab. Primary care physician - Kasey Renteria M.D.
[2020-04-19] MEDS: metFORMIN 500 MG Tab PO SCH (17:34)
[2020-04-19] MEDS: atorvaSTATin 20 MG Tab PO SCH (17:35)
[2020-04-19] MEDS: Insulin Glargine,Human Rec. Analog 100 Units/ML 3 ML Pen SUBCUT SCH (21:39)
[2020-04-19] MEDS: Insulin Lispro 100 Unit/ML 3 ML KwikPen SUBCUT SCH (21:43)
[2020-04-19] MEDS: Montelukast 10 MG Tab PO SCH (21:45)
[2020-04-19] MEDS: Metoprolol Tartrate 50 MG Tab PO SCH (21:45)
[2020-04-19] MEDS: VERIFY FENTANYL PATCH TOP SCH (21:48)
[2020-04-20] MEDS: metFORMIN 500 MG Tab PO SCH ×2 (07:09→17:34)
[2020-04-20] MEDS: Levothyroxine 25 MCG, Levothyroxine 50 MCG PO SCH ×2 (07:09)
[2020-04-20] MEDS: Tiotropium Bromide 4 GM Inhalation Spray INH SCH (07:19)
[2020-04-20] MEDS: oxyCODONE 5 MG Tab PO PRN ×4 (07:20→21:58)
[2020-04-20] MEDS: Acetaminophen 325 MG Tab PO PRN ×4 (07:20→21:56)
[2020-04-20] MEDS: Insulin Lispro 100 Unit/ML 3 ML KwikPen SUBCUT SCH ×4 (07:38→21:50)
--- NOTE | 2020-04-20 08:56 | CR ---
Hip Min 2V or 3V w Pelvis Lt CLINICAL HISTORY: Leg and hip pain, previous fall FINDINGS: There is joint space narrowing in both hips. There is acetabular spurring bilaterally. No fracture is identified. There is a 2 cm lytic lesion in the junction of the middle and distal third of the femoral shaft posteriorly.. There is a vague 1.5 cm lytic area in the intertrochanteric region. IMPRESSION: Lytic lesions in the femoral shaft and intertrochanteric region. These could be metastatic or possibly multiple myeloma. Further investigation reported.
[2020-04-20] MEDS ORDERED: Dexamethasone 4 MG Tab PO SCH (09:00)
[2020-04-20] MEDS: Loratadine 10 MG Tab PO SCH (09:53)
[2020-04-20] MEDS: Aspirin 81 MG Tab.Chew PO SCH (09:53)
[2020-04-20] MEDS: Fish Oil/Omega-3 Fatty Acids 1 Gm Cap PO SCH (09:54)
[2020-04-20] MEDS: Cholecalciferol (Vitamin D3) 25 MCG Tab PO SCH (09:54)
[2020-04-20] MEDS: Dexamethasone 2 MG Tab PO SCH (09:54)
[2020-04-20] MEDS: Enoxaparin 40 MG/0.4 ML Syringe SUBCUT SCH (09:55)
[2020-04-20] MEDS: Allopurinol 100 MG Tab PO SCH (09:55)
[2020-04-20] MEDS: Hydrochlorothiazide/Triamterene 25-37.5 Tab PO SCH (09:55)
[2020-04-20] MEDS: Metoprolol Tartrate 50 MG Tab PO SCH ×2 (09:55→20:04)
[2020-04-20] MEDS: VERIFY FENTANYL PATCH TOP SCH ×2 (10:05→20:02)
[2020-04-20] MEDS: atorvaSTATin 20 MG Tab PO SCH (17:34)
--- NOTE | 2020-04-20 19:34 | PCM.PN ---
- General Info Date of Service: 04/20/20 Subjective Update: Ms. Barnett is a 74-year-old woman who was admitted through the emergency department with marked weakness and pain. On evaluation she has been found to have multiple bony lytic lesions. She reports persistent pain and remains extremely weak. Currently requires assistance of 2 for standing and ambulation. She was started on fentanyl patch yesterday but has not yet noted benefit as far as pain control. Functional Status: Reports: Tolerating Diet, Urinating - Review of Systems General: Reports: Weakness, Fatigue. Denies: Fever, Chills Pulmonary: Reports: No Symptoms Cardiovascular: Reports: No Symptoms Gastrointestinal: Reports: No Symptoms Musculoskeletal: Reports: Other (Bone pain) - Patient Data Vitals - Most Recent: Last Vital Signs Temp 96 F L 04/20/20 15:00 Pulse 82 04/20/20 15:00 Resp 16 04/20/20 15:00 BP 158/77 H 04/20/20 15:00 Pulse Ox 93 L 04/20/20 15:00 Weight - Most Recent: 175 lb 4.809 oz I&O - Last 24 Hours: Intake & Output 04/20/20 04/20/20 04/20/20 06:59 14:59 22:59 Intake Total 940 500 Output Total 950 Balance 940 -450 Lab Results Last 24 Hours: Laboratory Results - last 24 hr 04/19/20 04/20/20 04/20/20 Range/Units 21:00 06:01 06:01 WBC 8.9 (4.5-11.0) K/uL RBC 3.17 L (3.30-5.50) M/uL Hgb 10.3 L (12.0-15.0) g/dL Hct 33.6 L (36.0-48.0) % MCV 106 H (80-98) fL MCH 33 H (27-31) pg MCHC 31 L (32-36) % Plt Count 260 (150-400) K/uL Sodium 137 L (140-148) mmol/L Potassium 4.2 (3.6-5.2) mmol/L Chloride 101 (100-108) mmol/L Carbon Dioxide 28 (21-32) mmol/L Anion Gap 12.2 (5.0-14.0) mmol/L BUN 28 H D (7-18) mg/dL Creatinine 0.9 (0.6-1.0) mg/dL Est Cr Clr Drug Dosing 44.69 mL/min Estimated GFR (MDRD) > 60 (>60) Glucose 147 H (74-106) mg/dL POC Glucose 245 H (74-106) MG/DL Calcium 10.5 H (8.5-10.1) mg/dL 04/20/20 04/20/20 04/20/20 Range/Units 07:30 11:30 16:30 WBC (4.5-11.0) K/uL RBC (3.30-5.50) M/uL Hgb (12.0-15.0) g/dL Hct (36.0-48.0) % MCV (80-98) fL MCH (27-31) pg MCHC (32-36) % Plt Count (150-400) K/uL Sodium (140-148) mmol/L Potassium (3.6-5.2) mmol/L Chloride (100-108) mmol/L Carbon Dioxide (21-32) mmol/L Anion Gap (5.0-14.0) mmol/L BUN (7-18) mg/dL Creatinine (0.6-1.0) mg/dL Est Cr Clr Drug Dosing mL/min Estimated GFR (MDRD) (>60) Glucose (74-106) mg/dL POC Glucose 130 H 156 H 160 H (74-106) MG/DL Calcium (8.5-10.1) mg/dL Med Orders - Current: Current Medications Acetaminophen (Tylenol) 650 mg PO Q4H PRN PRN Reason: Pain (Mild 1-3)/fever Last Admin: 04/20/20 16:23 Dose: 650 mg Documented by: Albuterol (Ventolin Hfa) 0 gm INH QID PRN PRN Reason: Shortness of Breath Allopurinol (Zyloprim) 300 mg PO DAILY [facility] Last Admin: 04/20/20 09:55 Dose: 300 mg Documented by: Aspirin (Aspirin) 81 mg PO DAILY [facility] Last Admin: 04/20/20 09:53 Dose: 81 mg Documented by: Atorvastatin Calcium (Lipitor) 20 mg PO QPM [facility] Last Admin: 04/20/20 17:34 Dose: 20 mg Documented by: Benzonatate (Tessalon Perles) 100 mg PO TID PRN PRN Reason: Cough Cholecalciferol (Vitamin D3) 50 mcg PO DAILY [facility] Last Admin: 04/20/20 09:54 Dose: 50 mcg Documented by: Dexamethasone (Dexamethasone) 4 mg PO DAILY [facility] Last Admin: 04/20/20 09:54 Dose: 4 mg Documented by: Dextrose/Water (Dextrose 50% In Water) 50 ml IVPUSH ASDIRECTED PRN PRN Reason: Hypoglycemia Dimethicone/Zinc Oxide (Rash Relief-Zinc Oxide [place]) 0 gm TOP ASDIRECTED PRN PRN Reason: Rash Last Admin: 04/18/20 20:42 Dose: 1 applic Documented by: Docusate Sodium (Colace) 100 mg PO BID PRN PRN Reason: Constipation Last Admin: 04/19/20 09:55 Dose: 100 mg Documented by: Enoxaparin Sodium (Lovenox) 40 mg SUBCUT DAILY [facility] Last Admin: 04/20/20 09:55 Dose: 40 mg Documented by: Fentanyl (Duragesic) 12 mcg TRDERM Q72H [facility] Last Admin: 04/19/20 10:07 Dose: 12 mcg Documented by: Fish Oil (Fish Oil) 1 gm PO DAILY [facility] Last Admin: 04/20/20 09:54 Dose: 1 gm Documented by: Glucagon (Glucagen) 1 mg IM ASDIRECTED PRN PRN Reason: Hypoglycemia Insulin Glargine (Lantus Solostar) 19 units SUBCUT BEDTIME [facility] Last Admin: 04/19/20 21:39 Dose: 19 unit Documented by: Insulin Human Lispro (Humalog) 0 unit SUBCUT QIDACANDBED [facility]; Protocol Last Admin: 04/20/20 17:35 Dose: 1 unit Documented by: Levothyroxine Sodium 25 mcg/ (Levothyroxine Sodium 50 mcg) 75 mcg PO ACBREAKFAST [facility] Last Admin: 04/20/20 07:09 Dose: 75 mcg Documented by: Loratadine (Claritin) 10 mg PO DAILY [facility] Last Admin: 04/20/20 09:53 Dose: 10 mg Documented by: Metformin HCl (Glucophage) 1,000 mg PO BIDMEALS [facility] Last Admin: 04/20/20 17:34 Dose: 1,000 mg Documented by: Metoprolol Tartrate (Lopressor) 50 mg PO BID [facility] Last Admin: 04/20/20 09:55 Dose: 50 mg Documented by: Montelukast Sodium (Singulair) 10 mg PO BEDTIME [facility] Last Admin: 04/19/20 21:45 Dose: 10 mg Documented by: Terbinafine [Lamisil (At 1% Crm (Ptom)) 0 gm TOP BID PRN PRN Reason: Rash Verify Fentanyl (Patch) 0 each TOP BID [facility] Last Admin: 04/20/20 10:05 Dose: Not Given Documented by: Ondansetron HCl (Zofran Odt) 4 mg PO Q6H PRN PRN Reason: Nausea able to take PO Oxycodone HCl (Oxycodone) 5 mg PO Q4H PRN PRN Reason: Pain (moderate 4-6) Last Admin: 04/20/20 16:23 Dose: 5 mg Documented by: Sodium Chloride (Saline Flush) 10 ml FLUSH ASDIRECTED PRN PRN Reason: Keep Vein Open Tiotropium [place] (Spiriva Respimat) 0 gm INH DAILYRT [facility] Last Admin: 04/20/20 07:19 Dose: Not Given Documented by: Triamterene/HCTZ (Maxzide 25-37.5 Mg) 1 each PO DAILY [facility] Last Admin: 04/20/20 09:55 Dose: 1 each Documented by: Discontinued Medications Acetaminophen (Tylenol) 650 mg PO NOW ONE Stop: 04/17/20 23:40 Last Admin: 04/18/20 00:06 Dose: 650 mg Documented by: Atorvastatin Calcium (Lipitor) 20 mg PO QPM [facility] Last Admin: 04/18/20 17:09 Dose: 20 mg Documented by: Cholecalciferol (Vitamin D3) 50 mcg PO DAILY [facility] Last Admin: 04/19/20 09:59 Dose: 50 mcg Documented by: Dexamethasone (Dexamethasone) 4 mg IVPUSH Q6H [facility] Last Admin: 04/19/20 04:50 Dose: 4 mg Documented by: Fish Oil (Fish Oil) 1 gm PO DAILY [facility] Last Admin: 04/19/20 09:55 Dose: 1 gm Documented by: Sodium Chloride (Normal Saline) 1,000 mls @ 500 mls/hr IV ASDIRECTED [facility] Last Admin: 04/18/20 00:17 Dose: 500 mls/hr Documented by: Sodium Chloride (Normal Saline) 80 mls @ 3 mls/sec IV ASDIRECTED [facility] Last Admin: 04/18/20 00:48 Dose: 3 mls/sec Documented by: Sodium Chloride (Normal Saline) 1,000 mls @ 125 mls/hr IV ASDIRECTED [facility] Last Admin: 04/18/20 02:41 Dose: 125 mls/hr Documented by: Insulin Glargine (Lantus Solostar) 19 units SUBCUT BEDTIME [facility] Last Admin: 04/18/20 20:36 Dose: 19 units Documented by: Iopamidol (Isovue-300 (61%)) 100 ml IV . DIRECTED PRN PRN Reason: RADIOLOGY EXAM Stop: 04/19/20 00:32 Last Admin: 04/18/20 00:45 Dose: 100 ml Documented by: Ketorolac Tromethamine (Toradol) 30 mg IM ONETIME ONE Stop: 04/17/20 20:32 Last Admin: 04/17/20 21:18 Dose: 30 mg Documented by: Levothyroxine Sodium (Synthroid) 50 mcg PO ACBREAKFAST [facility] Last Admin: 04/18/20 20:59 Dose: Not Given Documented by: Loratadine (Claritin) 10 mg PO DAILY [facility] Last Admin: 04/19/20 09:57 Dose: 10 mg Documented by: Metoprolol Tartrate (Lopressor) 50 mg PO BID [facility] Last Admin: 04/19/20 09:56 Dose: 50 mg Documented by: Montelukast Sodium (Singulair) 10 mg PO BEDTIME [facility] Last Admin: 04/18/20 20:05 Dose: 10 mg Documented by: Non-Formulary Medication (Terbinafine [Lamisil At 1% Crm]) 1 film TOP BID PRN PRN Reason: Wound Care Levothyroxine 75mcg (Tab (Ptom)) 0 each PO ACBREAKFAST [facility] Last Admin: 04/19/20 07:30 Dose: 1 each Documented by: Allopurinol 300mg (Tab (Ptom)) 0 each PO DAILY [facility] Last Admin: 04/19/20 09:57 Dose: 1 each Documented by: Metformin 1,000mg (Tab (Ptom)) 1 each PO BIDMEALS [facility] Last Admin: 04/19/20 09:31 Dose: 1 each Documented by: Sodium Chloride (Saline Flush) 10 ml FLUSH ONETIME ONE Stop: 04/18/20 00:32 Last Admin: 10/24/20 02:35 Dose: Not Given Documented by: Tiotropium [place] (Spiriva Respimat) 0 gm INH DAILYRT [facility] Last Admin: 04/19/20 07:05 Dose: Not Given Documented by: Triamterene/HCTZ (Maxzide 25-37.5 Mg) 1 each PO DAILY [facility] Last Admin: 04/19/20 09:58 Dose: 1 each Documented by: - Exam General: Alert, Oriented, Cooperative, Moderate Distress Lungs: Clear to Auscultation, Normal Respiratory Effort Cardiovascular: Regular Rate, Regular Rhythm, No Murmurs GI/Abdominal Exam: Soft, Non-Tender, No Organomegaly, No Distention Extremities: No Pedal Edema Sepsis Event Note - Evaluation Sepsis Screening Result: No Definite Risk - Focused Exam Vital Signs: Vital Signs Temp Pulse Pulse Resp BP BP Pulse Ox 04/20/20 15:00 96 F L 82 16 158/77 H 93 L 04/20/20 10:40 96.5 F L 74 16 148/67 H 93 L 04/20/20 09:55 74 155/82 H - Problem List Review Problem List Initiated/Reviewed/Updated: Yes - My Orders Last 24 Hours: My Active Orders 04/21/20 05:00 BASIC METABOLIC PANEL,BMP [CHEM] Timed - Plan Plan:: ASSESSMENT AND PLAN - Possible multiple myeloma-patient has anemia, renal insufficiency, elevated proteins albumin gradient as well as lytic bone lesions. She does have follow- up with oncology arranged in just over a week. 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 No definitive evidence for pathologic fracture at this time. She is able to bear weight now but is extremely weak. Pain is not yet under adequate control -Start low-dose fentanyl patch -Oxycodone for bone pain -Continue dexamethasone daily -Physical therapy -Outpatient oncology follow-up Insulin-dependent diabetes mellitus-sugars fairly well controlled. -Continue home medications Hypertension-blood pressure control acceptable. -Continue home medications Maintenance issues - - DVT prophylaxis -enoxaparin - GI prophylaxis -not indicated - Nutrition -consistent carbohydrates - Stark catheter -not indicated Admission justification -patient was initially admitted to observation status but will be transitioned to inpatient status with profound weakness and ongoing pain control issues as well as further work-up of her presumed diagnosis of multiple myeloma. Disposition -[facility] and Occupational Therapy Primary care physician - Kasey MCMILLAN
[2020-04-20] MEDS ORDERED: Ibuprofen 400 MG Tab PO SCH (20:00)
[2020-04-20] MEDS: Montelukast 10 MG Tab PO SCH (20:04)
[2020-04-20] MEDS: Docusate Sodium 100 MG Cap PO PRN (20:04)
[2020-04-20] MEDS: Insulin Glargine,Human Rec. Analog 100 Units/ML 3 ML Pen SUBCUT SCH (21:49)
[2020-04-21] MEDS: Acetaminophen 325 MG Tab PO PRN ×6 (02:47→23:44)
[2020-04-21] MEDS: oxyCODONE 5 MG Tab PO PRN ×6 (02:48→23:45)
[2020-04-21] MEDS: Levothyroxine 25 MCG, Levothyroxine 50 MCG PO SCH ×4 (05:54→07:11)
[2020-04-21 07:29] LABS: HEMOGLOBIN A1C 7.1 % (4.5-6.2)
[2020-04-21] MEDS: Tiotropium Bromide 4 GM Inhalation Spray INH SCH (08:01)
[2020-04-21] MEDS: metFORMIN 500 MG Tab PO SCH ×2 (09:00→17:23)
[2020-04-21] MEDS: Insulin Lispro 100 Unit/ML 3 ML KwikPen SUBCUT SCH ×4 (11:21→22:25)
[2020-04-21] MEDS: Aspirin 81 MG Tab.Chew PO SCH (11:24)
[2020-04-21] MEDS: Dexamethasone 2 MG Tab PO SCH (11:25)
[2020-04-21] MEDS: Metoprolol Tartrate 50 MG Tab PO SCH ×2 (11:25→22:24)
[2020-04-21] MEDS: Loratadine 10 MG Tab PO SCH (11:25)
[2020-04-21] MEDS: Fish Oil/Omega-3 Fatty Acids 1 Gm Cap PO SCH (11:25)
[2020-04-21] MEDS: Enoxaparin 40 MG/0.4 ML Syringe SUBCUT SCH (11:27)
[2020-04-21] MEDS: Cholecalciferol (Vitamin D3) 25 MCG Tab PO SCH (11:27)
[2020-04-21] MEDS: VERIFY FENTANYL PATCH TOP SCH ×2 (11:27→22:47)
[2020-04-21] MEDS: Hydrochlorothiazide/Triamterene 25-37.5 Tab PO SCH (11:27)
[2020-04-21] MEDS: Allopurinol 100 MG Tab PO SCH (11:28)
[2020-04-21] MEDS ORDERED: Sodium Phosphate,Monobasic/Sodium Phosphate,Dibasic Enema 133 ML Bottle RECTAL PRN (11:56)
[2020-04-21] MEDS ORDERED: Bisacodyl 10 MG Supp RECTAL ONE ×2 (12:00→15:30)
--- NOTE | 2020-04-21 12:04 | PCM.PN ---
- General Info Date of Service: 04/21/20 Subjective Update: Ms. Barnett continues to experience pain especially in her left leg. Over the last 24 hours has had significant increase in muscle spasms and cramps. She does not yet feel as though she has gained significant benefit from use of the fentanyl patch. Constipation is an issue she has not had a bowel movement for several days. Functional Status: Reports: Tolerating Diet, Urinating - Review of Systems General: Reports: Weakness, Fatigue. Denies: Fever, Chills Pulmonary: Reports: No Symptoms Cardiovascular: Reports: No Symptoms Gastrointestinal: Reports: No Symptoms Musculoskeletal: Reports: Leg Pain - Patient Data Vitals - Most Recent: Last Vital Signs Temp 95.6 F L 04/21/20 11:08 Pulse 75 04/21/20 11:25 Resp 16 04/21/20 11:08 BP 132/60 04/21/20 11:25 Pulse Ox 95 04/21/20 11:08 Weight - Most Recent: 175 lb 4.809 oz I&O - Last 24 Hours: Intake & Output 04/20/20 04/21/20 04/21/20 22:59 06:59 14:59 Intake Total 500 650 920 Output Total 950 Balance -450 650 920 Lab Results Last 24 Hours: Laboratory Results - last 24 hr 04/20/20 04/20/20 04/21/20 Range/Units 16:30 20:49 05:50 Sodium 134 L (140-148) mmol/L Potassium 4.4 (3.6-5.2) mmol/L Chloride 98 L (100-108) mmol/L Carbon Dioxide 31 (21-32) mmol/L Anion Gap 9.4 (5.0-14.0) mmol/L BUN 24 H (7-18) mg/dL Creatinine 1.0 (0.6-1.0) mg/dL Est Cr Clr Drug Dosing 39.87 mL/min Estimated GFR (MDRD) 55 L (>60) Glucose 157 H (74-106) mg/dL POC Glucose 160 H 243 H (74-106) MG/DL Hemoglobin A1c (4.5-6.2) % Calcium 10.5 H (8.5-10.1) mg/dL 04/21/20 04/21/20 04/21/20 Range/Units 05:50 07:38 11:30 Sodium (140-148) mmol/L Potassium (3.6-5.2) mmol/L Chloride (100-108) mmol/L Carbon Dioxide (21-32) mmol/L Anion Gap (5.0-14.0) mmol/L BUN (7-18) mg/dL Creatinine (0.6-1.0) mg/dL Est Cr Clr Drug Dosing mL/min Estimated GFR (MDRD) (>60) Glucose (74-106) mg/dL POC Glucose 117 H 154 H (74-106) MG/DL Hemoglobin A1c 7.1 H (4.5-6.2) % Calcium (8.5-10.1) mg/dL Med Orders - Current: Current Medications Acetaminophen (Tylenol) 650 mg PO Q4H PRN PRN Reason: Pain (Mild 1-3)/fever Last Admin: 04/21/20 11:42 Dose: 650 mg Documented by: Albuterol (Ventolin Hfa) 0 gm INH QID PRN PRN Reason: Shortness of Breath Allopurinol (Zyloprim) 300 mg PO DAILY [facility] Last Admin: 04/21/20 11:28 Dose: 300 mg Documented by: Aspirin (Aspirin) 81 mg PO DAILY [facility] Last Admin: 04/21/20 11:24 Dose: 81 mg Documented by: Atorvastatin Calcium (Lipitor) 20 mg PO QPM [facility] Last Admin: 04/20/20 17:34 Dose: 20 mg Documented by: Benzonatate (Tessalon Perles) 100 mg PO TID PRN PRN Reason: Cough Bisacodyl (Dulcolax) 10 mg RECTAL ONETIME ONE Stop: 04/21/20 11:57 Cholecalciferol (Vitamin D3) 50 mcg PO DAILY [facility] Last Admin: 04/21/20 11:27 Dose: 50 mcg Documented by: Cyclobenzaprine HCl (Flexeril) 5 mg PO Q6H PRN PRN Reason: Spasms Dexamethasone (Dexamethasone) 4 mg PO DAILY [facility] Last Admin: 04/21/20 11:25 Dose: 4 mg Documented by: Dextrose/Water (Dextrose 50% In Water) 50 ml IVPUSH ASDIRECTED PRN PRN Reason: Hypoglycemia Dimethicone/Zinc Oxide (Rash Relief-Zinc Oxide [place]) 0 gm TOP ASDIRECTED PRN PRN Reason: Rash Last Admin: 04/18/20 20:42 Dose: 1 applic Documented by: Docusate Sodium (Colace) 100 mg PO BID [facility] Enoxaparin Sodium (Lovenox) 40 mg SUBCUT DAILY [facility] Last Admin: 04/21/20 11:27 Dose: 40 mg Documented by: Fentanyl (Duragesic) 12 mcg TRDERM Q72H [facility] Last Admin: 04/19/20 10:07 Dose: 12 mcg Documented by: Fish Oil (Fish Oil) 1 gm PO DAILY [facility] Last Admin: 04/21/20 11:25 Dose: 1 gm Documented by: Glucagon (Glucagen) 1 mg IM ASDIRECTED PRN PRN Reason: Hypoglycemia Insulin Glargine (Lantus Solostar) 19 units SUBCUT BEDTIME [facility] Last Admin: 04/20/20 21:49 Dose: 19 unit Documented by: Insulin Human Lispro (Humalog) 0 unit SUBCUT QIDACANDBED [facility]; Protocol Last Admin: 04/21/20 11:47 Dose: 1 unit Documented by: Levothyroxine Sodium 25 mcg/ (Levothyroxine Sodium 50 mcg) 75 mcg PO ACBREAKFAST [facility] Last Admin: 04/21/20 07:11 Dose: Not Given Documented by: Loratadine (Claritin) 10 mg PO DAILY [facility] Last Admin: 04/21/20 11:25 Dose: 10 mg Documented by: Metformin HCl (Glucophage) 1,000 mg PO BIDMEALS [facility] Last Admin: 04/21/20 09:00 Dose: 1,000 mg Documented by: Metoprolol Tartrate (Lopressor) 50 mg PO BID [facility] Last Admin: 04/21/20 11:25 Dose: 50 mg Documented by: Montelukast Sodium (Singulair) 10 mg PO BEDTIME [facility] Last Admin: 04/20/20 20:04 Dose: 10 mg Documented by: Terbinafine [Lamisil (At 1% Crm (Ptom)) 0 gm TOP BID PRN PRN Reason: Rash Verify Fentanyl (Patch) 0 each TOP BID [facility] Last Admin: 04/21/20 11:27 Dose: Not Given Documented by: Ondansetron HCl (Zofran Odt) 4 mg PO Q6H PRN PRN Reason: Nausea able to take PO Oxycodone HCl (Oxycodone) 5 mg PO Q4H PRN PRN Reason: Pain (moderate 4-6) Last Admin: 04/21/20 11:41 Dose: 5 mg Documented by: Senna/Docusate Sodium (Senna Plus) 1 tab PO BID [facility] Sodium Biphosphate/Sodium Phosphate (Fleet Enema) 133 ml RECTAL ONETIME PRN PRN Reason: Constipation Sodium Chloride (Saline Flush) 10 ml FLUSH ASDIRECTED PRN PRN Reason: Keep Vein Open Tiotropium [place] (Spiriva Respimat) 0 gm INH DAILYRT [facility] Last Admin: 04/21/20 08:01 Dose: Not Given Documented by: Triamterene/HCTZ (Maxzide 25-37.5 Mg) 1 each PO DAILY [facility] Last Admin: 04/21/20 11:27 Dose: 1 each Documented by: Discontinued Medications Acetaminophen (Tylenol) 650 mg PO NOW ONE Stop: 04/17/20 23:40 Last Admin: 04/18/20 00:06 Dose: 650 mg Documented by: Atorvastatin Calcium (Lipitor) 20 mg PO QPM [facility] Last Admin: 04/18/20 17:09 Dose: 20 mg Documented by: Cholecalciferol (Vitamin D3) 50 mcg PO DAILY [facility] Last Admin: 04/19/20 09:59 Dose: 50 mcg Documented by: Dexamethasone (Dexamethasone) 4 mg IVPUSH Q6H [facility] Last Admin: 04/19/20 04:50 Dose: 4 mg Documented by: Docusate Sodium (Colace) 100 mg PO BID PRN PRN Reason: Constipation Last Admin: 04/20/20 20:04 Dose: 100 mg Documented by: Fish Oil (Fish Oil) 1 gm PO DAILY [facility] Last Admin: 04/19/20 09:55 Dose: 1 gm Documented by: Sodium Chloride (Normal Saline) 1,000 mls @ 500 mls/hr IV ASDIRECTED [facility] Last Admin: 04/18/20 00:17 Dose: 500 mls/hr Documented by: Sodium Chloride (Normal Saline) 80 mls @ 3 mls/sec IV ASDIRECTED [facility] Last Admin: 04/18/20 00:48 Dose: 3 mls/sec Documented by: Sodium Chloride (Normal Saline) 1,000 mls @ 125 mls/hr IV ASDIRECTED [facility] Last Admin: 04/18/20 02:41 Dose: 125 mls/hr Documented by: Ibuprofen (Motrin) 400 mg PO Q8H [facility] Insulin Glargine (Lantus Solostar) 19 units SUBCUT BEDTIME [facility] Last Admin: 04/18/20 20:36 Dose: 19 units Documented by: Iopamidol (Isovue-300 (61%)) 100 ml IV . DIRECTED PRN PRN Reason: RADIOLOGY EXAM Stop: 04/19/20 00:32 Last Admin: 04/18/20 00:45 Dose: 100 ml Documented by: Ketorolac Tromethamine (Toradol) 30 mg IM ONETIME ONE Stop: 04/17/20 20:32 Last Admin: 04/17/20 21:18 Dose: 30 mg Documented by: Levothyroxine Sodium (Synthroid) 50 mcg PO ACBREAKFAST [facility] Last Admin: 04/18/20 20:59 Dose: Not Given Documented by: Loratadine (Claritin) 10 mg PO DAILY [facility] Last Admin: 04/19/20 09:57 Dose: 10 mg Documented by: Metoprolol Tartrate (Lopressor) 50 mg PO BID [facility] Last Admin: 04/19/20 09:56 Dose: 50 mg Documented by: Montelukast Sodium (Singulair) 10 mg PO BEDTIME [facility] Last Admin: 04/18/20 20:05 Dose: 10 mg Documented by: Non-Formulary Medication (Terbinafine [Lamisil At 1% Crm]) 1 film TOP BID PRN PRN Reason: Wound Care Levothyroxine 75mcg (Tab (Ptom)) 0 each PO ACBREAKFAST [facility] Last Admin: 04/19/20 07:30 Dose: 1 each Documented by: Allopurinol 300mg (Tab (Ptom)) 0 each PO DAILY [facility] Last Admin: 04/19/20 09:57 Dose: 1 each Documented by: Metformin 1,000mg (Tab (Ptom)) 1 each PO BIDMEALS [facility] Last Admin: 04/19/20 09:31 Dose: 1 each Documented by: Sodium Chloride (Saline Flush) 10 ml FLUSH ONETIME ONE Stop: 04/18/20 00:32 Last Admin: 04/18/20 02:35 Dose: Not Given Documented by: Tiotropium [place] (Spiriva Respimat) 0 gm INH DAILYRT [facility] Last Admin: 04/19/20 07:05 Dose: Not Given Documented by: Triamterene/HCTZ (Maxzide 25-37.5 Mg) 1 each PO DAILY [facility] Last Admin: 04/19/20 09:58 Dose: 1 each Documented by: - Exam Quality Assessment: DVT Prophylaxis General: Alert, Oriented, Cooperative, Moderate Distress Lungs: Clear to Auscultation, Normal Respiratory Effort Cardiovascular: Regular Rate, Regular Rhythm, No Murmurs GI/Abdominal Exam: Soft, Non-Tender, No Organomegaly, No Distention Extremities: No Pedal Edema, Leg Pain Sepsis Event Note - Evaluation Sepsis Screening Result: No Definite Risk - Focused Exam Vital Signs: Vital Signs Temp Pulse Pulse Resp BP BP Pulse Ox 04/21/20 11:25 75 132/60 04/21/20 11:08 95.6 F L 75 16 132/60 95 04/21/20 10:49 97.9 F 70 16 131/65 92 L 04/21/20 06:48 97.0 F 70 16 157/72 H 92 L 04/21/20 02:38 96.3 F L 70 18 160/76 H 95 - Problem List Review Problem List Initiated/Reviewed/Updated: Yes - My Orders Last 24 Hours: My Active Orders 04/21/20 11:56 Cyclobenzaprine [Flexeril] 5 mg PO Q6H PRN bisacodyL [Dulcolax] 10 mg RECTAL ONETIME ONE 04/21/20 11:56 Na Phos,M-B/Na Phos,DI-B [Fleet Enema] 133 ml RECTAL ONETIME PRN 04/21/20 12:00 Docusate Sodium/Sennosides [Senna Plus] 1 tab PO BID 04/21/20 21:00 Docusate Sodium [Colace] 100 mg PO BID - Plan Plan:: ASSESSMENT AND PLAN - Possible multiple myeloma-patient has anemia, renal insufficiency, elevated proteins albumin gradient as well as lytic bone lesions. She does have follow- up with oncology arranged in just over a week. 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 No definitive evidence for pathologic fracture at this time. She is able to bear weight now but is extremely weak. Pain is not yet under adequate control. Increase in muscle spasms and cramps over the last 24 hours -Flexeril 5 mg p.o. every 6 hours as needed for cramps - low-dose fentanyl patch -Oxycodone for bone pain -Continue dexamethasone daily -Physical therapy -Outpatient oncology follow-up Insulin-dependent diabetes mellitus-sugars fairly well controlled. -Continue home medications Hypertension-blood pressure control acceptable. -Continue home medications Maintenance issues - - DVT prophylaxis -enoxaparin - GI prophylaxis -not indicated - Nutrition -consistent carbohydrates - Stark catheter -not indicated Admission justification -patient was initially admitted to observation status but will be transitioned to inpatient status with profound weakness and ongoing pain control issues as well as further work-up of her presumed diagnosis of multiple myeloma. Disposition -I would anticipate discharge to [facility] for restorative physical therapy and Occupational Therapy tomorrow Primary care physician - Kasey MCMILLAN
[2020-04-21] MEDS: Cyclobenzaprine 10 MG Tab PO PRN ×2 (15:49→22:30)
[2020-04-21] MEDS: atorvaSTATin 20 MG Tab PO SCH (17:23)
[2020-04-21] MEDS: Docusate Sodium 100 MG Cap PO SCH (22:20)
[2020-04-21] MEDS: Montelukast 10 MG Tab PO SCH (22:25)
[2020-04-21] MEDS: Insulin Glargine,Human Rec. Analog 100 Units/ML 3 ML Pen SUBCUT SCH (22:26)
[2020-04-22] MEDS: Acetaminophen 325 MG Tab PO PRN (05:10)
[2020-04-22] MEDS: oxyCODONE 5 MG Tab PO PRN (05:10)
[2020-04-22 07:11] VITALS: BP 176/74; PULSE 72
[2020-04-22] MEDS: Cyclobenzaprine 10 MG Tab PO PRN (07:14)
[2020-04-22] MEDS: Levothyroxine 25 MCG, Levothyroxine 50 MCG PO SCH ×2 (07:15)
[2020-04-22] MEDS ORDERED: oxyCODONE 5 MG Tab PO PRN (07:20)
[2020-04-22] MEDS: Tiotropium Bromide 4 GM Inhalation Spray INH SCH (07:42)
[2020-04-22] MEDS: Insulin Lispro 100 Unit/ML 3 ML KwikPen SUBCUT SCH ×2 (08:06→11:26)
[2020-04-22] MEDS: metFORMIN 500 MG Tab PO SCH (08:29)
[2020-04-22] MEDS: Aspirin 81 MG Tab.Chew PO SCH (08:29)
[2020-04-22] MEDS: Fish Oil/Omega-3 Fatty Acids 1 Gm Cap PO SCH (08:30)
[2020-04-22] MEDS: Docusate Sodium 100 MG Cap PO SCH (08:30)
[2020-04-22] MEDS: Loratadine 10 MG Tab PO SCH (08:30)
[2020-04-22] MEDS: Allopurinol 100 MG Tab PO SCH (08:31)
[2020-04-22] MEDS: Enoxaparin 40 MG/0.4 ML Syringe SUBCUT SCH (08:31)
[2020-04-22] MEDS: Cholecalciferol (Vitamin D3) 25 MCG Tab PO SCH (08:31)
[2020-04-22] MEDS: Metoprolol Tartrate 50 MG Tab PO SCH (08:32)
[2020-04-22] MEDS: Hydrochlorothiazide/Triamterene 25-37.5 Tab PO SCH (08:33)
[2020-04-22] MEDS ORDERED: FLU Vacc QV2020-21(65YR UP)/PF 240 MCG/0.7 ML Syringe IM ONE (09:00)
[2020-04-22] MEDS ORDERED: Dexamethasone 4 MG Tab PO SCH (09:00)
[2020-04-22] MEDS: VERIFY FENTANYL PATCH TOP SCH (09:01)
[2020-04-22] MEDS: fentaNYL 12 MCG/HR Transdermal Patch TRDERM SCH (10:46)
--- NOTE | 2020-04-22 11:57 | PCM.DCSUM1 ---
Discharge Summary - Hospital Course HPI Initial Comments: Ms. Barntet is a 74-year-old woman who was admitted through the emergency department with progressive weakness and severe pain causing marked difficulty with ambulation. On evaluation in the emergency department CT scan and x-rays showed evidence of lytic lesions within the bone of the spine, pelvis, and left femur. These lesions were felt to be consistent with metastatic disease versus myeloma. She was admitted to initiate pain control and facilitate early evaluation by oncology. - Discharge Data Discharge Date: 04/22/20 Discharge Disposition: DC/Tfer to SNF 03 Condition: Poor - Referral to Home Health Primary Care Physician: PCP None - Discharge Diagnosis/Problem(s) (1) Hypercalcemia SNOMED Code(s): 81292122 ICD Code: E83.52 - HYPERCALCEMIA Status: Acute Current Visit: Yes (2) Lytic bone lesions on xray SNOMED Code(s): 708154802 ICD Code: M89.9 - DISORDER OF BONE, UNSPECIFIED Status: Acute Priority: High Current Visit: Yes Onset Date: Unknown Problem Details: Patient has pain due to lytic lesions that are widespread of her bones. Will attempt to get pain under control with dexamethasone, NSAIDs, and opiate pain medication. 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 [facility] use Diabetes mellitus complication status: with kidney complications Diabetes mellitus comp lication detail: with chronic kidney disease Chronic kidney disease stage: stage 3 (moderate) (4) HTN (hypertension) SNOMED Code(s): 90367340 ICD Code: I10 - ESSENTIAL (PRIMARY) HYPERTENSION Status: Chronic Current Visit: Yes Problem Details: Will have patient continue home medications Qualifiers: Hypertension type: essential hypertension Qualified Code(s): I10 - Essential (primary) hypertension (5) COPD (chronic obstructive pulmonary disease) SNOMED Code(s): 30874692 ICD Code: J44.9 - CHRONIC OBSTRUCTIVE PULMONARY DISEASE, UNSPECIFIED Status: Chronic Current Visit: Yes Problem Details: will have patient continue home medications Qualifiers: COPD type: chronic bronchitis - Patient Summary/Data Consults: Consultations 04/20/20 07:00 PT Evaluation and Treatment [CONS] Routine Please Evaluate and Treat. PT Reason for Consult: Strengthening This query below is only for informational purposes and is not editable. Admission Diagnosis/Problem: Multiple myeloma Hospital Course: Ms. Barnett is a 74-year-old woman who was admitted through the emergency department with progressive weakness and severe pain causing marked difficulty with ambulation. On evaluation in the emergency department CT scan and x-rays showed evidence of lytic lesions within the bone of the spine, pelvis, and left femur. These lesions were felt to be consistent with metastatic disease versus myeloma. She was admitted to initiate pain control and facilitate early evaluation by oncology. She was started on a fentanyl patch 12 mcg and given oxycodone 5 mg every 4 hours as needed for pain. This did result in fairly good pain control at rest but she continued to experience significant pain with any movement. Appointment has been scheduled for her with oncology 2 days after discharge. Further evaluation will be undertaken to evaluate the underlying etiology of probable malignancy. She was noted to have mild hypercalcemia that will need to be monitored on an ongoing basis and is likely related to her underlying malignancy and bone disease. Diabetes control remained fairly adequate throughout hospitalization although was somewhat increased from baseline secondary to current therapy with Decadron. She will be continued on the Decadron for an additional 3 days and will be discharged to the longterm with prescriptions for fentanyl and oxycodone. Activity will be as tolerated and she should receive daily physical therapy and occupational therapy at the longterm. She will be on a consistent carbohydrate diet. - Patient Instructions Diet: Diabetic Diet Activity: As Tolerated Other/Special Instructions: Patient has appointment with oncology for April 24. Daily physical therapy and occupational therapy while at the longterm. Recheck BMP on April 27. - Discharge Plan *PRESCRIPTION DRUG MONITORING PROGRAM REVIEWED*: Not Applicable *COPY OF PRESCRIPTION DRUG MONITORING REPORT IN PATIENT TOBIN: Not Applicable Prescriptions/Med Rec: dexAMETHasone [Dexamethasone] 4 mg PO DAILY #3 tablet fentaNYL [Duragesic] 12 mcg TRDERM Q72H #10 patch oxyCODONE 5 mg PO Q4H PRN #30 tablet PRN Reason: Pain (Moderate 4-6) Home Medications: Home Meds Levothyroxine [Synthroid] 75 mcg PO ACBREAKFAST 10/16/14 [History] metFORMIN [Glucophage] 1,000 mg PO BIDMEALS 10/16/14 [History] Albuterol Sulfate [Albuterol Sulfate HFA] 2 puff PO QID PRN 11/20/14 [History] Aspirin [[place] Aspirin] 81 mg PO DAILY 11/20/14 [History] HCTZ/Triamterene [Maxzide 25-37.5 MG] 1 tab PO DAILY 11/20/14 [History] Benzonatate [Tessalon Perle] 100 mg PO TID PRN 04/17/20 [History] Insulin Glarg,Human.Rec.Analog [Lantus Solostar] 19 unit SUBCUT BEDTIME 04/17/20 [History] Loratadine 10 mg PO DAILY 04/17/20 [History] Montelukast [Singulair] 10 mg PO BEDTIME 04/17/20 [History] [place]-3 Acid Ethyl Esters [Lovaza] 1 gm PO DAILY 04/17/20 [History] Terbinafine [LamISIL AT 1% Crm] 36 gm TP BID PRN 04/17/20 [History] Tiotropium [Spiriva HandiHaler] 18 mcg INH DAILY 04/17/20 [History] allopurinoL [Zyloprim] 300 mg PO DAILY 04/17/20 [History] atorvaSTATin Calcium [Lipitor] 20 mg PO QPM 04/17/20 [History] Metoprolol Tartrate 50 mg PO BID 04/18/20 [History] dexAMETHasone [Dexamethasone] 4 mg PO DAILY #3 tablet 04/22/20 [Rx] fentaNYL [Duragesic] 12 mcg TRDERM Q72H #10 patch 04/22/20 [Rx] oxyCODONE 5 mg PO Q4H PRN #30 tablet 04/22/20 [Rx] Referrals: Yair Carmen MD [Ordering Only Provider] - 04/24/20 12:30 pm (Your appointment with Dr. Carmen will be at the [facility].) - Discharge Summary/Plan Comment DC Time >30 min.: No - Patient Data Vitals - Most Recent: Last Vital Signs Temp 96.9 F 04/22/20 07:09 Pulse 72 04/22/20 08:32 Resp 16 04/22/20 07:09 BP 176/74 H 04/22/20 08:32 Pulse Ox 91 L 04/22/20 07:09 Weight - Most Recent: 175 lb 4.809 oz I&O - Last 24 hours: Intake & Output 04/21/20 04/22/20 04/22/20 22:59 06:59 14:59 Intake Total 950 500 Output Total 425 Balance 525 500 Lab Results - Last 24 hrs: Laboratory Results - last 24 hr 04/21/20 04/21/20 04/21/20 Range/Units 13:16 16:17 21:13 POC Glucose 201 H 259 H (74-106) MG/DL SARS CoV-2 RNA Rapid TONY Negative 04/22/20 04/22/20 Range/Units 07:30 11:30 POC Glucose 109 H 134 H (74-106) MG/DL SARS CoV-2 RNA Rapid TONY Med Orders - Current: Current Medications Acetaminophen (Tylenol) 650 mg PO Q4H PRN PRN Reason: Pain (Mild 1-3)/fever Last Admin: 04/22/20 05:10 Dose: 650 mg Documented by: Albuterol (Ventolin Hfa) 0 gm INH QID PRN PRN Reason: Shortness of Breath Allopurinol (Zyloprim) 300 mg PO DAILY [facility] Last Admin: 04/22/20 08:31 Dose: 300 mg Documented by: Aspirin (Aspirin) 81 mg PO DAILY [facility] Last Admin: 04/22/20 08:29 Dose: 81 mg Documented by: Atorvastatin Calcium (Lipitor) 20 mg PO QPM [facility] Last Admin: 04/21/20 17:23 Dose: 20 mg Documented by: Benzonatate (Tessalon Perles) 100 mg PO TID PRN PRN Reason: Cough Cholecalciferol (Vitamin D3) 50 mcg PO DAILY [facility] Last Admin: 04/22/20 08:31 Dose: 50 mcg Documented by: Cyclobenzaprine HCl (Flexeril) 5 mg PO Q6H PRN PRN Reason: Spasms Last Admin: 04/22/20 07:14 Dose: 5 mg Documented by: Dexamethasone (Dexamethasone) 4 mg PO DAILY [facility] Last Admin: 04/22/20 08:30 Dose: 4 mg Documented by: Dextrose/Water (Dextrose 50% In Water) 50 ml IVPUSH ASDIRECTED PRN PRN Reason: Hypoglycemia Dimethicone/Zinc Oxide (Rash Relief-Zinc Oxide [place]) 0 gm TOP ASDIRECTED PRN PRN Reason: Rash Last Admin: 04/18/20 20:42 Dose: 1 applic Documented by: Docusate Sodium (Colace) 100 mg PO BID [facility] Last Admin: 04/22/20 08:30 Dose: 100 mg Documented by: Enoxaparin Sodium (Lovenox) 40 mg SUBCUT DAILY [facility] Last Admin: 04/22/20 08:31 Dose: 40 mg Documented by: Fentanyl (Duragesic) 12 mcg TRDERM Q72H [facility] Last Admin: 04/22/20 10:46 Dose: 12 mcg Documented by: Fish Oil (Fish Oil) 1 gm PO DAILY [facility] Last Admin: 04/22/20 08:30 Dose: 1 gm Documented by: Glucagon (Glucagen) 1 mg IM ASDIRECTED PRN PRN Reason: Hypoglycemia Insulin Glargine (Lantus Solostar) 19 units SUBCUT BEDTIME [facility] Last Admin: 04/21/20 22:26 Dose: 19 unit Documented by: Insulin Human Lispro (Humalog) 0 unit SUBCUT QIDACANDBED [facility]; Protocol Last Admin: 04/22/20 11:26 Dose: Not Given Documented by: Levothyroxine Sodium 25 mcg/ (Levothyroxine Sodium 50 mcg) 75 mcg PO ACBREAKFAST [facility] Last Admin: 04/22/20 07:15 Dose: 75 mcg Documented by: Loratadine (Claritin) 10 mg PO DAILY [facility] Last Admin: 04/22/20 08:30 Dose: 10 mg Documented by: Metformin HCl (Glucophage) 1,000 mg PO BIDMEALS [facility] Last Admin: 04/22/20 08:29 Dose: 1,000 mg Documented by: Metoprolol Tartrate (Lopressor) 50 mg PO BID [facility] Last Admin: 04/22/20 08:32 Dose: 50 mg Documented by: Montelukast Sodium (Singulair) 10 mg PO BEDTIME [facility] Last Admin: 04/21/20 22:25 Dose: 10 mg Documented by: Terbinafine [Lamisil (At 1% Crm (Ptom)) 0 gm TOP BID PRN PRN Reason: Rash Verify Fentanyl (Patch) 0 each TOP BID [facility] Last Admin: 04/22/20 09:01 Dose: Not Given Documented by: Ondansetron HCl (Zofran Odt) 4 mg PO Q6H PRN PRN Reason: Nausea able to take PO Oxycodone HCl (Oxycodone) 5 - 10 mg PO Q4H PRN PRN Reason: Pain (moderate 4-6) Last Admin: 04/22/20 07:32 Dose: 10 mg Documented by: Senna/Docusate Sodium (Senna Plus) 1 tab PO BID [facility] Last Admin: 04/22/20 08:31 Dose: Not Given Documented by: Sodium Biphosphate/Sodium Phosphate (Fleet Enema) 133 ml RECTAL ONETIME PRN PRN Reason: Constipation Sodium Chloride (Saline Flush) 10 ml FLUSH ASDIRECTED PRN PRN Reason: Keep Vein Open Tiotropium [place] (Spiriva Respimat) 0 gm INH DAILYRT [facility] Last Admin: 04/22/20 07:42 Dose: Not Given Documented by: Triamterene/HCTZ (Maxzide 25-37.5 Mg) 1 each PO DAILY [facility] Last Admin: 04/22/20 08:33 Dose: 1 each Documented by: Discontinued Medications Acetaminophen (Tylenol) 650 mg PO NOW ONE Stop: 04/17/20 23:40 Last Admin: 04/18/20 00:06 Dose: 650 mg Documented by: Atorvastatin Calcium (Lipitor) 20 mg PO QPM [facility] Last Admin: 04/18/20 17:09 Dose: 20 mg Documented by: Bisacodyl (Dulcolax) 10 mg RECTAL ONETIME ONE Stop: 04/21/20 15:31 Last Admin: 04/21/20 15:36 Dose: 10 mg Documented by: Cholecalciferol (Vitamin D3) 50 mcg PO DAILY [facility] Last Admin: 04/19/20 09:59 Dose: 50 mcg Documented by: Dexamethasone (Dexamethasone) 4 mg IVPUSH Q6H [facility] Last Admin: 04/19/20 04:50 Dose: 4 mg Documented by: Dexamethasone (Dexamethasone) 4 mg PO DAILY [facility] Last Admin: 04/21/20 11:25 Dose: 4 mg Documented by: Docusate Sodium (Colace) 100 mg PO BID PRN PRN Reason: Constipation Last Admin: 04/20/20 20:04 Dose: 100 mg Documented by: Fish Oil (Fish Oil) 1 gm PO DAILY [facility] Last Admin: 04/19/20 09:55 Dose: 1 gm Documented by: Sodium Chloride (Normal Saline) 1,000 mls @ 500 mls/hr IV ASDIRECTED [facility] Last Admin: 04/18/20 00:17 Dose: 500 mls/hr Documented by: Sodium Chloride (Normal Saline) 80 mls @ 3 mls/sec IV ASDIRECTED [facility] Last Admin: 04/18/20 00:48 Dose: 3 mls/sec Documented by: Sodium Chloride (Normal Saline) 1,000 mls @ 125 mls/hr IV ASDIRECTED [facility] Last Admin: 04/18/20 02:41 Dose: 125 mls/hr Documented by: Ibuprofen (Motrin) 400 mg PO Q8H [facility] Influenza Virus Vaccine (Fluzone High-Dose Quad 2019-) 240 mcg IM .ONCE ONE Stop: 04/22/20 09:01 Last Admin: 04/22/20 08:38 Dose: 240 mcg Documented by: Insulin Glargine (Lantus Solostar) 19 units SUBCUT BEDTIME [facility] Last Admin: 04/18/20 20:36 Dose: 19 units Documented by: Iopamidol (Isovue-300 (61%)) 100 ml IV . DIRECTED PRN PRN Reason: RADIOLOGY EXAM Stop: 04/19/20 00:32 Last Admin: 04/18/20 00:45 Dose: 100 ml Documented by: Ketorolac Tromethamine (Toradol) 30 mg IM ONETIME ONE Stop: 04/17/20 20:32 Last Admin: 04/17/20 21:18 Dose: 30 mg Documented by: Levothyroxine Sodium (Synthroid) 50 mcg PO ACBREAKFAST [facility] Last Admin: 04/18/20 20:59 Dose: Not Given Documented by: Loratadine (Claritin) 10 mg PO DAILY [facility] Last Admin: 04/19/20 09:57 Dose: 10 mg Documented by: Metoprolol Tartrate (Lopressor) 50 mg PO BID [facility] Last Admin: 04/19/20 09:56 Dose: 50 mg Documented by: Montelukast Sodium (Singulair) 10 mg PO BEDTIME [facility] Last Admin: 04/18/20 20:05 Dose: 10 mg Documented by: Non-Formulary Medication (Terbinafine [Lamisil At 1% Crm]) 1 film TOP BID PRN PRN Reason: Wound Care Oxycodone HCl (Oxycodone) 5 mg PO Q4H PRN PRN Reason: Pain (moderate 4-6) Last Admin: 04/22/20 05:10 Dose: 5 mg Documented by: Levothyroxine 75mcg (Tab (Ptom)) 0 each PO ACBREAKFAST [facility] Last Admin: 04/19/20 07:30 Dose: 1 each Documented by: Allopurinol 300mg (Tab (Ptom)) 0 each PO DAILY [facility] Last Admin: 04/19/20 09:57 Dose: 1 each Documented by: Metformin 1,000mg (Tab (Ptom)) 1 each PO BIDMEALS [facility] Last Admin: 04/19/20 09:31 Dose: 1 each Documented by: Sodium Chloride (Saline Flush) 10 ml FLUSH ONETIME ONE Stop: 04/18/20 00:32 Last Admin: 04/18/20 02:35 Dose: Not Given Documented by: Tiotropium [place] (Spiriva Respimat) 0 gm INH DAILYRT [facility] Last Admin: 04/19/20 07:05 Dose: Not Given Documented by: Triamterene/HCTZ (Maxzide 25-37.5 Mg) 1 each PO DAILY [facility] Last Admin: 04/19/20 09:58 Dose: 1 each Documented by: - Exam Quality Assessment: Reports: DVT Prophylaxis General: Reports: Alert, Oriented, Cooperative, Moderate Distress Lungs: Reports: Clear to Auscultation, Normal Respiratory Effort Cardiovascular: Reports: Regular Rate, Regular Rhythm, No Murmurs GI/Abdominal Exam: Soft, Non-Tender, No Organomegaly, No Distention Extremities: Leg Pain
== END 2020-04-22 12:36 | DRG 948 ==
LOC: JP.ED 19:24 → JP.ICU 04-18 01:38 → OBSVTOIN 04-19 09:44 → JP.MS 04-19 14:00
PROVIDERS: ADMIT Family Medicine; ATTEND Hospitalist
DX: G89.3 Neoplasm related pain (acute) (chronic) (principal); I10 Essential (primary) hypertension; E11.9 Type 2 diabetes mellitus without complications; C90.00 Multiple myeloma not having achieved remission; E83.52 Hypercalcemia; I12.9 Hypertensive chronic kidney disease with stage 1 through stage 4 chronic kidney disease, or unspecified chronic kidney disease; E11.22 Type 2 diabetes mellitus with diabetic chronic kidney disease; N18.30 Chronic kidney disease, stage 3 unspecified; J45.909 Unspecified asthma, uncomplicated; J44.9 Chronic obstructive pulmonary disease, unspecified; E78.00 Pure hypercholesterolemia, unspecified; M19.90 Unspecified osteoarthritis, unspecified site; F32.9 Major depressive disorder, single episode, unspecified; E66.9 Obesity, unspecified; Z96.659 Presence of unspecified artificial knee joint; E03.9 Hypothyroidism, unspecified; H54.7 Unspecified visual loss; Z20.828 Contact with and (suspected) exposure to other viral communicable diseases; Z79.890 Hormone replacement therapy; N28.9 Disorder of kidney and ureter, unspecified; Z79.899 Other long term (current) drug therapy; Z79.82 Long term (current) use of aspirin; Z79.4 Long term (current) use of insulin; Z98.49 Cataract extraction status, unspecified eye; Z87.891 Personal history of nicotine dependence; Z88.8 Allergy status to other drugs, medicaments and biological substances; Z68.32 Body mass index [BMI] 32.0-32.9, adult; Z91.81 History of falling
CPT/HCPCS: 36415; 71260; 73502 ×2; 73700; 74177; 80053; 82962 ×4; 83605; 85025; 86140; 96372; 99285; A9270 ×17; J1100 ×4; J1650; J1815; J1885; J7030 ×2; Q9967; 80048; 83036; 85027; 90662; 97110-GP; 97163-GP; 97530-GP; G0008; J8540; U0002